=== PATIENT | female | born 1940 | race Caucasian/White ===

== ENCOUNTER → 2020-03-21 10:01 | Outpatient (BNVA) | payer MEDICARE, OTHER, SELFPAY | PROVIDERS: Family Provider Nurse Practitioner Family; PCP Nurse Practitioner Family; Visit Provider Nurse Practitioner Family | DX: I10 Essential (primary) hypertension (principal); R01.1 Cardiac murmur, unspecified | CPT/HCPCS: 80053; 80061; 84443; 85025 ==

== ENCOUNTER → 2020-03-30 15:56 | Outpatient (BNVA) | payer MEDICARE, OTHER, SELFPAY | PROVIDERS: Family Provider Nurse Practitioner Family; PCP Nurse Practitioner Family; Visit Provider Nurse Practitioner | DX: M25.562 Pain in left knee (principal) | CPT/HCPCS: 73562 ==

== ENCOUNTER → 2021-06-08 10:36 | Outpatient (BNVA) | payer MEDICARE, OTHER, SELFPAY | PROVIDERS: Family Provider Nurse Practitioner Family; PCP Nurse Practitioner Family; Visit Provider Nurse Practitioner Family | DX: U07.1 COVID-19 (principal) | CPT/HCPCS: 80053; 85025; 85379; 86140 ==

== ENCOUNTER → 2021-10-09 11:15 | Outpatient (BNVA) | payer MEDICARE, OTHER, SELFPAY | PROVIDERS: Family Provider Nurse Practitioner Family; PCP Nurse Practitioner Family; Visit Provider Nurse Practitioner Family | DX: I10 Essential (primary) hypertension (principal); M17.12 Unilateral primary osteoarthritis, left knee; K21.9 Gastro-esophageal reflux disease without esophagitis | CPT/HCPCS: 80053; 80061; 84443; 85025 ==

== ENCOUNTER 2022-02-26 16:36 | Observation (INO) | payer MEDICARE, SELFPAY ==
[2022-02-26] VITALS (11 sets, daily range): BP systolic 132–191; BP diastolic 63–100; PULSE 74–93; RESP 16–21; TEMP 36.6–38.7; O2SAT 92–97; BMI 30.8
--- NOTE | 2022-02-26 16:49 | XRR_ITS ---
PROCEDURE INFORMATION: Exam: XR Chest Exam date and time: 02/26/2022 5:01 PM Age: 81 years old Clinical indication: Chest wall pain; Additional info: Chest pain TECHNIQUE: Imaging protocol: XR of the chest. Views: 1 view. COMPARISON: No relevant prior studies available. FINDINGS: Lungs: Unremarkable. No consolidation. Pleural spaces: Unremarkable. No pleural effusion. No pneumothorax. Heart/Mediastinum: Unremarkable. No cardiomegaly. Bones/joints: Unremarkable. XR/XR chest 1V portable [id number] IMPRESSION: No acute findings.
[2022-02-26 16:57] LABS: Basophils % 0.1 %; Eosinophils % 0.1 %; Hematocrit 38.3 % (37.0-47.0); Hemoglobin 12.9 g/dL (11.5-15.3); Lymphocytes # 0.8 10^3/uL (0.8-4.8); Lymphocytes % 5.3 %; Mean Corpuscular HGB Conc 33.7 g/dL (30.0-36.0); Mean Corpuscular Hemoglobin 29.3 pg (28.0-34.0); Mean Platelet Volume 10.1 fL (7.4-10.4); Monocytes # 1.2 10^3/uL (0.2-0.9); Monocytes % 7.6 %; Neutrophils # 13.57 10^3/uL (1.8-7.7); Neutrophils % 86.6 %; Nucleated Red Blood Cells % 0 %; Platelet Count 270 10^3/cmm (130-400); Red Cell Distribution Width 13.2 % (12.1-15.1); White Blood Count 15.7 10^3/uL (4.0-10.0)
--- NOTE | 2022-02-26 16:58 | ED_ITS ---
HPI - General Adult General: Chief complaint: Chest Pain Stated complaint: CP Time Seen by Provider: 02/26/22 16:44 History of Present Illness: This is a [81]yo patient hx of HTN, diastolic heart dysfunction presenting to the ED w/ acute onset intermittent substernal chest pain x 2 hours. Patient tells me that this morning she woke up with significant diaphoresis around 8:00 with b/l arm pain. Since then, patient has been feeling fatigued throughout the day. Around 3 PM today, patient describes severe pressure-like sensation over her chest. Pain is not tearing in nature and does not radiate to the back. Endorse nausea but has no associated with vomiting or decreased PO intake. Denies any recent sympathomimetic drug use. Patient denies any cough. Denies palpitations, syncope symptoms. Pain not positional. Norecent immobility, surgery, unilateral leg swelling, or prior PE. Patient denies any orthopnea, paroxysmal nocturnal dyspnea, weight gain, or increased leg swellings. Onset: 2 hrs of chest pain Duration: ongoing for the last 2 hrs Location: home Severity: moderate Associated symptoms: Reports chest pain and diaphoresis; Deny dyspnea, nausea, rash, palpitations or vomiting Review of Systems Const: Reports: fatigue, diaphoresis and other; Denies: fever(s) or chills Eyes: Denies: change in vision ENMT: Denies: mouth pain Card: Reports: chest pain; Denies: palpitations Resp: Denies: dyspnea or non-productive cough GI: Denies: abdominal pain, nausea, vomiting or diarrhea : Denies: dysuria Musc: Denies: extremity pain Skin/Breast: Denies: rash or new lesions Neuro: Denies: weakness in extremities Psych: Reports: other (Normal mood) Keyshawn/Lymph: Denies: easy bruising PFSH ED PFSH: Medical History Cataract BILATERAL SURGERY Diastolic dysfunction GERD (gastroesophageal reflux disease) Hypertension Murmur Valvular insufficiency Surgical History H/O hysterectomy for benign disease History of appendectomy Family History Father Stroke Brother Cancer Other CAD (coronary artery disease) Social History Second hand smoke exposure: No Smoking risk assessment/counseling performed?: No Alcohol intake: never Desire information about alcohol rehabilitation?: No Counseling given: No Desire information about substance/drug rehabilitation?: No Counseling given: No Adopted: No Caregiver/support person: No Lives independently: Yes Household members: spouse Housing: House Marital status: Number of children: 3 service: No Current occupational status: retired Pets and animals: No History of recent travel: No Current gender identity: Female Physical Exam Const: COMMON NORMALS: alert HENMT: COMMON NORMALS: atraumatic HEAD & SCALP: atraumatic MOUTH: moist mucous membranes not abnormal Eye: COMMON NORMALS: EOMs intact bilaterally and conjunctivae normal CONJU NCTIVA: Yes conjunctivae normal Neck/C-Spine: COMMON NORMALS: full ROM and supple Resp: COMMON NORMALS: normal respiratory effort and clear to auscultation bilaterally AUSCULTATION: clear to auscultation bilaterally Cardio: COMMON NORMALS: regular rate RATE: regular rate OTHER: 2+ radial pulses b/l GI: COMMON NORMALS: Soft to palpation and non-tender PALPATION: Yes Soft to palpation Extremity: COMMON NORMALS: full ROM OTHER: +no LE swelling Neuro: SENSORIUM/ORIENTATION: Yes alert MOTOR EXAM: No Abnormal motor strength present and Other motor observations present (no focal motor deficits) Psych: COMMON NORMALS: speech normal SPEECH: Yes normal speech MOOD & AFFECT: Yes euthymic mood Course Vital Signs: Vital signs: Vital Signs Temperature 99.1 F 02/26/22 16:46 Pulse Rate 93 02/26/22 16:46 Respiratory Rate 20 H 02/26/22 16:46 Blood Pressure 191/100 02/26/22 16:46 Pulse Oximetry 94 02/26/22 16:46 MDM - General Adult Medical Decision Making [81]yo patient w/ hx of HTN, diastolic dysfunction presenting to the ED With acute substernal chest pain X 1 day Currently mild chest pain 4/10. Given History And Exam today I have moderate to high suspicion for ACS/UA/NSTEMI. Today, I have NO suspicion for pneumothorax, pneumonia, pulmonary embolus, tamponade, aortic dissection or other emergent problem as a cause for this presentation. ECG did not show any signs of acute STEMI. Workup: ECGx2, CXR, CBC, BMP, Troponinx2 Intervention: morphine/nitro PRN pain Findings: ECG: No overt evidence of STEMI, []hyperacute T waves, localizable STD or T wave inversions. No evidence of Brugada?s sign, delta wave, epsilon wave, significantly prolonged QTc, or malignant arrhythmia. No Q waves. Troponin: Negative x 1 Other Labs unremarkable for emergent problems. CXR: Without PTX, PNA, or widened mediastinum HEART score: 4 [6:30pm] On reassessment, the patient is currently chest pain improved with morphine. S/p aspirin 325mg. Pending repeat troponin. HDS, AAOx3, no signs of respiratory distress, without refractory chest pain, no signs of malignant dysrhythmia on environmental monitoring technician (VT/VF). Disposition: Inpatient admission. Lab Data : 02/26/22 16:50 02/26/22 16:50 Laboratory Results WBC 15.7 10^3/uL (4.0-10.0) H 02/26/22 16:50 RBC 4.40 10^6/uL (4.1-5.3) 02/26/22 16:50 Hgb 12.9 g/dL (11.5-15.3) 02/26/22 16:50 Hct 38.3 % (37.0-47.0) 02/26/22 16:50 MCV 87.0 fl (81-99) 02/26/22 16:50 MCH 29.3 pg (28.0-34.0) 02/26/22 16:50 MCHC 33.7 g/dL (30.0-36.0) 02/26/22 16:50 RDW 13.2 % (12.1-15.1) 02/26/22 16:50 Plt Count 270 10^3/cmm (130-400) 02/26/22 16:50 MPV 10.1 fL (7.4-10.4) 02/26/22 16:50 Neut % (Auto) 86.6 % 02/26/22 16:50 Lymph % (Auto) 5.3 % 02/26/22 16:50 [place] % (Auto) 7.6 % 02/26/22 16:50 Eos % (Auto) 0.1 % 02/26/22 16:50 Baso % (Auto) 0.1 % 02/26/22 16:50 Neut # (Auto) 13.57 10^3/uL (1.8-7.7) H 02/26/22 16:50 Lymph # (Auto) 0.8 10^3/uL (0.8-4.8) 02/26/22 16:50 [place] # (Auto) 1.2 10^3/uL (0.2-0.9) H 02/26/22 16:50 Eos # (Auto) 0.0 10^3/uL (0.0-0.8) 02/26/22 16:50 Baso # (Auto) 0.0 10^3/uL (0.0-0.1) 02/26/22 16:50 Nucleated RBC % (auto) 0 % 02/26/22 16:50 Nucleated RBCs # 0.0 /100WBC 02/26/22 16:50 Discharge Plan Discharge Condition: Stable Prescriptions: No Action calcium carbonate [Calcium 600] 600 mg calcium (1,500 mg) tablet 600 mg PO DAILY 0RF cyanocobalamin (vitamin B-12) 1,000 mcg capsule 5,000 mcg PO DAILY 0RF ascorbic acid (vitamin C) 500 mg tablet 500 mg PO DAILY 0RF cholecalciferol (vitamin D3) 125 mcg (5,000 unit) capsule 125 mcg PO DAILY 0RF Bystolic 5 mg tablet 5 mg PO DAILY Qty: 90 3RF omeprazole 10 mg capsule,delayed release(DR/EC) 40 mg PO DAILY Qty: 90 1RF celecoxib [Celebrex] 200 mg capsule 200 mg PO DAILY 30 Days Qty: 90 1RF Rx Instructions: Stop Ibuprofen Referrals: Allison Mauricio FNP-C [Primary Care Provider] - Coding Level of Care Code ED [employer] for Casey Lara
[2022-02-26] MEDS: morphine 4 mg/mL SDV 1 mL 2 MG IVP (17:14)
[2022-02-26 17:20] LABS: Troponin(5th) Baseline 7 ng/L (0-10)
[2022-02-26 17:21] LABS: Anion Gap 18.8 (5-19); Blood Urea Nitrogen 12 mg/dL (8-23); Calcium 9.7 mg/dL (8.5-10.5); Carbon Dioxide 21 mmol/L (22-29); Chloride 97 mmol/L (98-107); Glucose 116 mg/dL (65-115); Osmolality Calculated 277 mOsm/kg (285-295); Potassium 3.8 mmol/L (3.5-5.1); Sodium 133 mmol/L (136-145)
--- NOTE | 2022-02-26 19:38 | ECG_ITS ---
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 Measurements Intervals [place] Rate: 82 P: 18 NM: 176 QRS: 17 QRSD: 97 T: 34 QT: 336 QTc: 394 Interpretive Statements SINUS RHYTHM INCOMPLETE RIGHT BUNDLE BRANCH BLOCK [90+ ms QRS DURATION, TERMINAL R IN V1/V2, 40+ ms S IN I/aVL/V4/V5/V6] Compared to ECG 02/26/2022 16:46:46 No significant changes Electronically Signed On 02-27-2022 17:33:46 CDT by Orlin Spear M.D. [email or web address] [facility].MedWhat/store/[id number]
--- NOTE | 2022-02-26 19:53 | P.HP_ITS ---
Providers/Chief Complaint Admitting Physician: Ct Henry MD Primary Care Provider: SHUKRI Baum Chief Complaint: CP History of Present Illness Antonina Pfeiffer is a 81 year old female who presents today for chief complaint of not feeling well and chest discomfort. Patient stating that last night she was not feeling well she was extremely tired and slept around 830 which is very unusual for her. When she woke up next day she was drenched in sweat. Around 3 PM she started noticing some chest discomfort, when she took her blood pressure the systolic blood pressure was above 200 mmHg, she called her PCP who recommended to take aspirin high dose and go to the ER. Patient is stating that her chest pain persisted until she was chcf to the ER. Roughly chest pain persisted for about 30 to 40 minutes. She only took high-dose aspirin at home. She has not noticed fever, diarrhea, productive cough. She is endorsing tachypnea, shortness of breath on exertion, she is denying orthopnea and PND. Patient is stating that lately she has been breathing heavy. She consider h erself active for age, she has not experienced any chest pain on exertion. She follows up with Dr. Hummel for her murmur, she is due to see Dr. Prajapati now as Dr. Herr has moved. At the time of my evaluation blood pressure 140/79, she is afebrile doing well on room air Chest pain-free Very pleasant cooperative EKG revealed sinus rhythm no QTC of elongation, incomplete right bundle branch block I have requested D-dimer and echo Review of Systems 2 Const: Reports: chills and body aches Eyes: Denies: change in vision ENMT: Denies: throat pain Card: Reports: chest pain and dyspnea on exertion Resp: Reports: dyspnea GI: Denies: abdominal pain : Denies: flank pain Musc: Denies: neck pain Skin/Breast: Denies: rash Neuro: Denies: headache(s) Psych: Denies: anxiety Endo: Denies: polyuria Keyshawn/Lymph: Denies: easy bruising All/Imm: Denies: urticaria Medications/Allergies Home Medications Medication Instructions Recorded Confirmed Last Taken Type calcium carbonate 600 mg calcium 600 mg PO DAILY tab 10/29/19 02/26/22 02/26/22 History (1,500 mg) tablet (Calcium) cyanocobalamin (vitamin B-12) 5,000 mcg PO DAILY cap 10/25/20 02/26/22 02/26/22 History 1,000 mcg capsule ascorbic acid (vitamin C) 500 mg 500 mg PO DAILY 10/24/21 02/26/22 02/26/22 History tablet cholecalciferol (vitamin D3) 125 125 mcg PO DAILY 10/24/21 02/26/22 02/26/22 History mcg (5,000 unit) capsule nebivolol 5 mg tablet (Bystolic) 5 mg PO DAILY #90 tab 10/24/21 02/26/22 02/26/22 Rx omeprazole 10 mg capsule,delayed 40 mg PO DAILY #90 cap 01/24/22 02/26/22 02/26/22 Rx release celecoxib 200 mg capsule (Celebrex) 200 mg PO DAILY 30 Days #90 cap 02/08/22 02/26/22 02/26/22 Rx Allergies Allergy/AdvReac Type Severity Reaction Status Date / Time No Known Allergies Allergy Verified 02/26/22 17:24 PFSH Acute PFSH: Medical History Cataract BILATERAL SURGERY Diastolic dysfunction GERD (gastroesophageal reflux disease) Hypertension Murmur Valvular insufficiency Surgical History H/O hysterectomy for benign disease History of appendectomy Family History Father Stroke Brother Cancer Other CAD (coronary artery disease) Social History Second hand smoke exposure: No Smoking risk assessment/counseling performed?: No Alcohol intake: never Desire information about alcohol rehabilitation?: No Counseling given: No Desire information about substance/drug rehabilitation?: No Counseling given: No Adopted: No Caregiver/support person: No Lives independently: Yes Household members: spouse Housing: House Marital status: Number of children: 3 service: No Current occupational status: retired Pets and animals: No History of recent travel: No Current gender identity: Female Vitals/I&O/Wt Last Vital Signs Temp 99.1 F 02/26/22 16:46 Pulse 74 02/26/22 19:21 Resp 16 02/26/22 19:21 BP 140/79 02/26/22 19:21 Pulse Ox 94 02/26/22 19:21 Weight last 48 hrs Weight 71.668 kg Physical Exam Narrative: Very pleasant cooperative female Euvolemic Satting well on room air No respiratory distress S1, S2 Systolic murmur appreciated right second intercostal space No signs of heart failure EOMI, PERRLA Nonfocal neuro exam Doing well on room air Euvolemic No active chest pain Data : 02/26/22 16:50 02/26/22 16:50 A&P Assessment and plan (1) Unstable angina: Status: Acute Plan Unstable angina No active chest pain First troponin 7 EKG without ischemic or infarct changes Check D-dimer, echo Check TSH Check BMP Considering moderate risk factor for coronary artery disease we will do stress test in the morning Patient is endorsing shortness of breath on exertion, further decision will be made after her echo and cardiac stress test Would recommend against celecoxib Does not have typical aortic dissection signs or symptoms Rule out PE D-dimer No active signs of pneumonia Hypertensive urgency: Current blood pressure 140/70 mmHg, Continue lisinopril 5 mg along morphine, hold metoprolol for stress test tomorrow morning Follow-up for TSH GERD: Continue Protonix Full code N.p.o. after midnight DVT prophylaxis currently on therapeutic Lovenox Attestations Medical Necessity Statement*: Anticipating discharge within 48 hours will need work-up for unstable angina Time Spent in Patient Care: 40mins Coding Level of Care Code Acute [employer] Team Member for Casey Lara Diagnoses Unstable angina I20.0
--- NOTE | 2022-02-26 20:04 | USCV_ITS ---
Antonina Pfeiffer Age: 81 Gender: F : 1940 Exam Date: 02/26/2022 21:25 Ordering Phys: Sabino Harmon MD Technologist: IMAN Exam Location: [facility] Indication: Angina BP: 163 / 103 HR: 73 Rhythm: Sinus Technical Quality: Adequate MEASUREMENTS (Male / Female) Normal Values 2D ECHO LV Diastolic Diameter PLAX 4.1 cm 4.2 - 5.9 / 3.9 - 5.3 cm LV Systolic Diameter PLAX 1.4 cm IVS Diastolic Thickness 1.1 cm 0.6 - 1.0 / 0.6 - 0.9 cm IVS Systolic Thickness 1.6 cm LVPW Diastolic Thickness 1.3 cm 0.6 - 1.0 / 0.6 - 0.9 cm LVPW Systolic Thickness 2.7 cm LVOT Diameter 1.9 cm LV Ejection Fraction 2D Teich 93.5 % LV Ejection Fraction MOD 2C 72.1 % LV Ejection Fraction 2C AL 70.4 % LA Diameter 4.1 cm LA Width 5.3 cm LA Height 6.2 cm RA Width 3.6 cm RA Height 3.8 cm Aorta at Sinotubular Diameter 2.2 cm IVC Diameter 1.6 cm M-MODE Aortic Annulus Diameter 2.1 cm LA Ao Ratio MM 2.4 MV E Point Septal Separation 0.5 cm DOPPLER AV Peak Velocity 217.0 cm/s LVOT Peak Velocity 129.0 cm/s AV Area Cont Eq vti 1.9 cm squared AV Area Cont Eq pk 1.7 cm squared MV Peak Velocity 143.0 cm/s MV Area PHT 3.0 cm squared Mitral E to A Ratio 0.7 MV E' Velocity 93.0 cm/s TR Peak Velocity 139.6 cm/s TR Peak Gradient 7.8 mmHg TR Mean Velocity 89.5 cm/s TR Mean Gradient 4.1 mmHg TR Velocity Time Integral 23.4 cm Right Atrial Pressure 10.0 mmHg Pulmonary Artery Systolic Pressu 17.8 mmHg PV Peak Velocity 137.0 cm/s RV Acceleration Time 0.1 s RV Ejection Time 0.3 s RV AcT/ET 0.3 FINDINGS Left Ventricle Normal left ventricular size. LV systolic function is normal with EF of 60-65%. No regional wall motion abnormalities. Grade 1 diastolic dysfunction Right Ventricle The right ventricle is normal in size and function. Right Atrium The right atrium is normal in size. Left Atrium The left atrium is dilated. Mitral Valve Structurally normal mitral valve without significant stenosis or prolapse. There is mild mitral regurgitation. Aortic Valve Structurally normal aortic valve without significant sclerosis or stenosis. There is no aortic regurgitation. Tricuspid Valve Structurally normal tricuspid valve without significant stenosis or regurgitation. Insufficient TR jet to calculate RVSP Pulmonic Valve Structurally normal pulmonic valve without significant stenosis. There is no pulmonic regurgitation. Pericardium Normal pericardium without effusion. Aorta Normal ascending aorta dimension. CONCLUSIONS LV systolic function is normal with EF of 60-65% Grade 1 diastolic dysfunction Mild mitral regurgitation Compared to prior echocardiogram to 12/24/2018, no significant changes are seen Orlin Spear MD (Electronically Signed) Final Date: 27 Feb 2022 11:00 S
--- NOTE | 2022-02-26 20:08 | ECG_ITS ---
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 Interpretive Statements NAME OF STUDY: LEXISCAN SESTAMIBI STRESS TEST INDICATION: Angina, PROCEDURE: At the baseline, the EKG revealed normal sinus rhythm with a poor R wave progression. Possible old inferior wall NH. The baseline blood pressure was 123/65 mm Hg with a heart rate of 90 beats/min. Lexiscan was infused over a period of 20 seconds. A total of 0.4 milligrams of Lexiscan was infused. The stress phase was continued for a total of 5 minutes. Heart rate at the end of the stress phase was uneventful with a blood pressure 128/66. The EKG at the peak infusion revealed no significant changes. Sestamibi was injected 20 seconds after the Lexiscan infusion. Blood pressure at the end of the recovery phase was 131/64 with a heart rate of 104 per minute. CONCLUSION: no significant changes Angina, 1. No significant EKG changes with the LexiScan infusion 2. No LexiScan induced chest pain or cardiac arrhythmia 3. Normal blood pressure and heart rate response 4. Sestamibi/sestamibi perfusion scan pending; see separate report. Electronically Signed On 03-01-2022 13:25:13 CDT by Dina Amos M.D. [email or web address] Pharmaceuticals[facility].Zollo/store/[id number]
[2022-02-26 21:09] LABS: D Dimer 1.16 ug/mIFEU (0-0.59)
[2022-02-26 21:14] LABS: Troponin 5 2HR 7.78 ng/L (0-10)
[2022-02-26 21:21] LABS: Troponin 5 2HR Delta 0.78 ABS# (0-10)
[2022-02-26 21:22] LABS: NT Pro B Type Natriuretic Pept 734 pg/mL (0-450); Procalcitonin 0.51 ng/mL (0-0.5); Thyroid Stimulating Hormone 1.94 uIU/mL (0.27-4.20)
[2022-02-26 21:33] LABS: Chol HDL Ratio 3.21 mg/dL (0.0-4.40); Cholesterol 170 mg/dL (0-200); HDL Cholesterol 53 mg/dL (60-100); LDL Cholesterol Calculated 104 mg/dL (50-129); LDL HDL Ratio 1.96 RATIO (0.00-3.22); Triglycerides 64 mg/dL (0-150)
[2022-02-26 21:45] LABS: Estmated Average Glucose 120; Hemoglobin A1C 5.8 % (4.0-6.0)
[2022-02-26] MEDS: enoxaparin 80 mg/0.8 mL Syringe 70 MG SUBCUT (22:00)
[2022-02-26] MEDS: atorvastatin 40 mg Tablet 80 MG PO (22:00)
[2022-02-26] MEDS: potassium chloride ER 20 mEq Tablet PO (22:00)
--- NOTE | 2022-02-26 22:38 | ECG_ITS ---
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 Measurements Intervals [place] Rate: 77 P: 34 GA: 163 QRS: 20 QRSD: 102 T: 39 QT: 383 QTc: 436 Interpretive Statements SINUS RHYTHM INCOMPLETE RIGHT BUNDLE BRANCH BLOCK [90+ ms QRS DURATION, TERMINAL R IN V1/V2, 40+ ms S IN I/aVL/V4/V5/V6] PROBABLE INFERIOR MYOCARDIAL INFARCTION , PROBABLY OLD [35 ms Q WAVE IN II/aVF] Compared to ECG 02/26/2022 22:11:54 Myocardial infarct finding now present Electronically Signed On 02-27-2022 17:32:12 CDT by Orlin Spear M.D. [email or web address].[employer]store/[id number]
[2022-02-26] MEDS: lisinopril 10 mg Tablet PO (22:44)
[2022-02-26] MEDS: acetaminophen 325 mg Tablet 650 MG PO (22:44)
--- NOTE | 2022-02-26 22:46 | PC.NURSE ---
2159- secure messaged Dr. Sanchez for clarification on Lisinopril order. Instructed to give 10mg of Lisinopril only by Dr. Sanchez. See MAR
--- NOTE | 2022-02-26 22:49 | ECG_ITS ---
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 Measurements Intervals [place] Rate: 92 P: 39 IA: 168 QRS: 32 QRSD: 101 T: 52 QT: 335 QTc: 415 Interpretive Statements SINUS RHYTHM INCOMPLETE RIGHT BUNDLE BRANCH BLOCK [90+ ms QRS DURATION, TERMINAL R IN V1/V2, 40+ ms S IN I/aVL/V4/V5/V6] No previous ECG available for comparison Electronically Signed On 02-26-2022 21:51:07 CDT by Dina Amos M.D. [email or web address].[facility].[employer]/store/[id number]
[2022-02-26 22:50] LABS: Add Urine Microscopic? NO; Charge for UA Resulting for Rev
[2022-02-26 22:52] LABS: Bilirubin Urine Neg (Negative); Blood Urine Neg (Negative); Glucose Urine UA Norm (Normal); Ketones Urine 2+ (Negative); Leukocyte Esterase Urine Negative (Negative); Nitrate Urine Negative (Negative); Protein Urine Neg (Negative); Urine Appearance Clear (CLEAR); Urine Color Yellow (Yellow); Urobilinogen Urine 1 mg/dL (Negative); pH Urine 7 (5-7)
[2022-02-27] VITALS (8 sets, daily range): BP systolic 101–134; BP diastolic 56–84; PULSE 77–105; RESP 16–23; TEMP 37.6; O2SAT 93–94
--- NOTE | 2022-02-27 01:38 | ECG_ITS ---
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 Measurements Intervals [place] Rate: 83 P: 29 MO: 156 QRS: 50 QRSD: 98 T: 42 QT: 336 QTc: 395 Interpretive Statements SINUS RHYTHM INCOMPLETE RIGHT BUNDLE BRANCH BLOCK [90+ ms QRS DURATION, TERMINAL R IN V1/V2, 40+ ms S IN I/aVL/V4/V5/V6] Compared to ECG 02/27/2022 01:23:33 Myocardial infarct finding no longer present Electronically Signed On 02-27-2022 17:31:17 CDT by Orlin Spear M.D. [email or web address] mississippi state hospitalM[facility].[employer]/store/[id number]
[2022-02-27 02:42] LABS: Basophils % 0.2 %; Eosinophils % 0.1 %; Hematocrit 37.2 % (37.0-47.0); Hemoglobin 12.1 g/dL (11.5-15.3); Lymphocytes % 7.7 %; Mean Corpuscular HGB Conc 32.5 g/dL (30.0-36.0); Mean Corpuscular Hemoglobin 29.2 pg (28.0-34.0); Mean Corpuscular Volume 89.9 fl (81-99); Mean Platelet Volume 10.5 fL (7.4-10.4); Monocytes % 7.7 %; Neutrophils # 11.25 10^3/uL (1.8-7.7); Neutrophils % 83.8 %; Nucleated Red Blood Cells % 0 %; Platelet Count 256 10^3/cmm (130-400); Red Blood Count 4.14 10^6/uL (4.1-5.3); Red Cell Distribution Width 13.2 % (12.1-15.1); White Blood Count 13.4 10^3/uL (4.0-10.0)
[2022-02-27 03:00] LABS: Alanine Aminotransferase 17 U/L (0-33); Albumin Level 3.6 g/dL (3.5-5.2); Alkaline Phosphatase 70 IU/L (35-105); Anion Gap 16.6 (5-19); Aspartate Amino Transferase 18 U/L (0-32); Blood Urea Nitrogen 12 mg/dL (8-23); Calcium 9.3 mg/dL (8.5-10.5); Carbon Dioxide 21 mmol/L (22-29); Chloride 99 mmol/L (98-107); Glucose 111 mg/dL (65-115); Osmolality Calculated 276 mOsm/kg (285-295); Potassium 3.6 mmol/L (3.5-5.1); Sodium 133 mmol/L (136-145); Total Bilirubin 0.8 mg/dL (0.15-1.2); Total Protein 6.6 g/dL (6.6-8.7)
[2022-02-27 03:01] LABS: Troponin 5 6HR 9.58 ng/L (0-10)
[2022-02-27 03:11] LABS: Troponin 5 6HR Delta 2.58 ng/L (0-12)
--- NOTE | 2022-02-27 06:45 | NMCV_ITS ---
NM zoila perf SPECT r/s* [id number] Antonina Pfeiffer Age: 81 Gender: F : 1940 Exam Date: 02/26/2022 20:08 Ordering Phys: Sabino Harmon MD Technologist: NAOMY Fountain Exam Location: [facility] Indications: CHEST PAIN STRESS TEST Please see separate stress test report in [facility] for full findings IMAGE PROTOCOL Rest/Stress 1 Lexiscan Day Radiopharmaceutical Dose (mCi) Administration Site Administered by Rest: Tc-99m 10.8 IV Miley López, ARCHITECTURE DRAFTER Sestamibi Stress:Tc-99m 32.5 IV Miley Holtrager, ARCHITECTURE DRAFTER Sestamibi Rest: 27-Feb-2022 60 Discovery 630 Stress: 27-Feb-2022 30 Discovery 630 0.4mg Lexiscan. Images obtained in supine and prone position. SPECT RESULTS Technical Quality: Excellent Raw Data Analysis: Normal Image Corrections: No attenuation or motion correction applied Summed Stress Score: 2 Summed Rest Score: 2 Summed Difference Score: 2 PERFUSION FINDINGS A small area of moderately decreased tracer uptake was noted in the mid inferolateral region with complete reversibility, in the supine imaging. However with the prone imaging, there was fairly uniform myocardial tracer uptake. FUNCTIONAL RESULTS (calculated via Gated SPECT) Stress Image LV EF (%): 88 Stress EDV (mL):51 TID: 0.84 Stress ESV (mL):6 FUNCTIONAL FINDINGS: Segmental wall motion analysis revealing no gross wall motion abnormality IMPRESSIONS 1. Myocardial perfusion imaging revealing a small area of reversible defect in the inferolateral wall region, suggestive of ischemia in the distribution of the left circumflex artery. However in view of the inconsistency with the prone imaging, the reliability is questionable. Clinical correlation is recommended. 2. Normal LV ejection fraction of 88%. 3. LV wall motion analysis revealing no gross wall motion abnormalities. 4. Normal LV volume No similar previous studies are available for comparison Dr Dina Amos MD [facility] (Electronically Signed) Final Date: 27 Feb 2022 09:24 S
--- NOTE | 2022-02-27 07:56 | PC.NURSE ---
to cardiac stress test via w/c at 0745
[2022-02-27] MEDS: ondansetron 2 mg/ML SDV 2 mL 4 MG IVP (08:27)
[2022-02-27] MEDS: regadenoson 0.4 Mg/5 ml Syringe IVP (08:27)
--- NOTE | 2022-02-27 09:37 | PC.NURSE ---
return from cardiac stress test at 0915.pt tolerated procedure well
[2022-02-27] MEDS: enoxaparin 80 mg/0.8 mL Syringe 70 MG SUBCUT (09:40)
[2022-02-27] MEDS: lisinopril 10 mg Tablet PO (09:41)
[2022-02-27] MEDS: atorvastatin 40 mg Tablet 80 MG PO (09:48)
[2022-02-27] MEDS: aspirin 81 mg EC Tablet PO (09:48)
[2022-02-27] MEDS: amlodipine 5 mg Tablet PO (09:49)
[2022-02-27] MEDS: pantoprazole DR 40 mg Tablet PO (09:49)
[2022-02-27 10:41] LABS: Glucose Urine UA Norm (Normal); Protein Urine 1+ (Negative); Specific Gravity, Urine 1.015 (1.005-1.030); Urine Appearance Hazy (CLEAR); Urine Color Yellow (Yellow); pH Urine 5 (5-7)
[2022-02-27 10:42] LABS: Bilirubin Urine 1+ (Negative); Blood Urine 2+ (Negative); Ketones Urine 3+ (Negative); Nitrate Urine Negative (Negative)
[2022-02-27 10:43] LABS: Add Urine Microscopic? YES; Leukocyte Esterase Urine 2+ (Negative); RBC Urine 0-4 /hpf (0-2); Urobilinogen Urine 1 mg/dL (Negative)
[2022-02-27 10:44] LABS: Add Urine Culture? Yes; Bacteria Urine 1+ /hpf; Renal Epithelial Cells Urine 0 /hpf
[2022-02-27 10:46] LABS: Influenza A by IFA Negative (Negative); Influenza B by IFA Negative (Negative)
[2022-02-27] MEDS: cefTRIAXone 1,000 MG in sodium chloride 0.9% (plus) 50 ML 100 MG IV (11:25)
--- NOTE | 2022-02-27 16:04 | P.PN_ITS ---
Subjective Subjective: Seen later this afternoon after stress test results are back. They do show small reversible defect in the inferior wall area and left circumflex artery region. However the defect is questionable as proper images were not obtained due to patient's positioning. I discussed this with the patient and her and they appeared quite worried. Discussed with him regarding consulting cardiology. Patient has not had any chest pain since being in the hospital. Vitals/I&O/Wt Last Vital Signs Temp 99.7 F H 02/27/22 03:40 Pulse 80 02/27/22 14:00 Resp 16 02/27/22 12:00 BP 124/58 02/27/22 12:00 Pulse Ox 94 02/27/22 12:00 02/27/22 02/27/22 02/27/22 06:59 14:59 22:59 Intake Total 0 / 50 650 / 650 Output Total 500 / 500 Balance -500 / -450 650 / 650 Weight last 48 hrs Weight 71.668 kg Physical Exam Narrative: General: Alert oriented x3, patient seen laying in bed appearing worried. at bedside. HEENT: Normocephalic, atraumatic, EOMI, breathing comfortably. Cardio: Regular rate rhythm, normal S1-S2 Respiratory: Good bilateral air entry, no wheezes no rhonchi appreciated GI: Abdomen soft, nontender, nondistended, bowel sounds + Extremities: no edema, no cyanosis Data : 02/27/22 02:03 02/27/22 02:03 Micro: Microbiology 02/26/22 20:30 Blood Culture - Preliminary Blood SPECIMEN COLLECTED 02/26/22 20:28 Blood Culture - Preliminary Blood SPECIMEN COLLECTED A&P Assessment and plan (1) Unstable angina: Status: Acute (2) Valvular insufficiency: Status: Acute (3) Osteoarthritis of left knee: Status: Acute Qualifiers: Osteoarthritis type: primary Qualified Code(s): M17.12 - Unilateral francine alisa osteoarthritis, left knee (4) GERD (gastroesophageal reflux disease): Status: Chronic Qualifiers: Esophagitis presence: without esophagitis Qualified Code(s): K21.9 - Gastro-esophageal reflux disease without esophagitis (5) Hypertension: Status: Chronic Qualifiers: Hypertension type: essential hypertension Qualified Code(s): I10 - Essential (primary) hypertension (6) Diastolic dysfunction: Status: Acute Plan #Unstable angina #History of diastolic dysfunction #Hypertensive urgency?blood pressure systolic at home 200 #GERD #UTI, Patient came in with typical chest pain and also shortness of breath on exertion It relieved with nitro and morphine. EKG without ischemic changes. Echo completed. No wall motion abnormality noted. Grade 1 diastolic function present Stress test showed a small reversible defect in left circumflex artery region, correlate clinically BMP 734. Patient is euvolemic. Patient was started on on aspirin, atorvastatin, lisinopril at admission Held off on beta-elena and Plavix at admission. Continue rest of home medications. Blood pressure controlled. Patient is on therapeutic Lovenox. Consult cardiology. Blood cultures negative to date. Patient was febrile on admission. We will continue ceftriaxone for UTI. Full code ? at bedside updated. Attestations Medical Necessity Statement*: Will need to see cardiology for further recommendations. Positive stress test. Coding Level of Care Code Acute Lever Operator for [facility] Fwd Diagnoses Unstable angina I20.0 Valvular insufficiency I38 Osteoarthritis of left knee M17.12 Osteoarthritis type: primary GERD (gastroesophageal reflux disease) K21.9 Esophagitis presence: without esophagitis Hypertension I10 Hypertension type: essential hypertension Diastolic dysfunction I51.89
--- NOTE | 2022-02-27 16:06 | P.CONIM_ITS ---
Providers/Reason For Consult Consulting Physician/Specialty*: Dr. Prajapati, cardiology Reason for Consult*: Chest pain, abnormal stress test Attending Physician: Ct Henry MD Primary Care Provider: SHUKRI Baum History of Present Illness History of Present Illness Antonina Pfeiffer is a 81 year old female with PMHx of hypertension, tricuspid valve regurgitation and diastolic dysfunction She presented with chief complaint of not feeling well and chest discomfort.? Patient was extremely tired night before and when she woke up next day she was drenched in sweat. Around 3 PM, she checked her BP and noted it was >200 mm Hg and some chest tightness. She called her PCP and was sent to the ER.? Patient's chest pain persisted after taking ASA until she was custodial to the ER and was completely relieved by morphine.? Roughly chest pain persisted for about an hr.? She has not noticed dysuria, fever, diarrhea, productive cough.? She consider herself active for age, she has not experienced any chest pain on exertion.?Troponins negative, EKG with sinus rhythm and incomplete RBBB. She has been chest pain-free since arrival to the ER. She underwent stress test this morning. Her Dennis (my pt) is at bedside. She remains chest pain-free at the time of evaluation. Review of Systems General: Reports: 10 or more systems reviewed and unremarkable except in HPI and below Const: Reports: chills and body aches Eyes: Denies: change in vision ENMT: Denies: throat pain Card: Reports: chest pain and dyspnea on exertion Resp: Reports: dyspnea GI: Denies: abdominal pain : Denies: flank pain Musc: Denies: neck pain Skin/Breast: Denies: rash Neuro: Denies: headache(s) Psych: Denies: anxiety Endo: Denies: polyuria Keyshawn/Lymph: Denies: easy bruising All/Imm: Denies: urticaria Medications/Allergies Home Medications Medication Instructions Recorded Confirmed Last Taken Type calcium carbonate 600 mg calcium 600 mg PO DAILY tab 10/29/19 02/26/22 02/26/22 History (1,500 mg) tablet (Calcium) cyanocobalamin (vitamin B-12) 5,000 mcg PO DAILY cap 10/25/20 02/26/22 02/26/22 History 1,000 mcg capsule ascorbic acid (vitamin C) 500 mg 500 mg PO DAILY 10/24/21 02/26/22 02/26/22 History tablet cholecalciferol (vitamin D3) 125 125 mcg PO DAILY 10/24/21 02/26/22 02/26/22 History mcg (5,000 unit) capsule nebivolol 5 mg tablet (Bystolic) 5 mg PO DAILY #90 tab 10/24/21 02/26/22 02/26/22 Rx omeprazole 10 mg capsule,delayed 40 mg PO DAILY #90 cap 01/24/22 02/26/22 02/26/22 Rx release aspirin 81 mg tablet,delayed 81 mg PO DAILY 30 Days #30 tab 02/27/22 Unknown Rx release atorvastatin 40 mg tablet 80 mg PO DAILY 30 Days #30 tab 02/27/22 Unknown Rx cefdinir 300 mg capsule 300 mg PO BID 7 Days #14 cap 02/27/22 Unknown Rx lisinopril 10 mg tablet 10 mg PO DAILY 30 Days #30 tab 02/27/22 Unknown Rx nitroglycerin 0.4 mg sublingual 0.4 mg SUBLINGUAL Q5M PRN 30 Days 02/27/22 Unknown Rx tablet #10 tab Allergies Allergy/AdvReac Type Severity Reaction Status Date / Time No Known Allergies Allergy Verified 02/26/22 17:24 Current Medications Generic Name Dose Route Start Last Admin Trade Name Johnnyq PRN Reason Stop Dose Admin Acetaminophen 650 mg 02/26/22 22:36 02/26/22 22:44 Acetaminophen 325 Mg Tablet PO 650 mg Q6H PRN Administration MILD PAIN Amlodipine Besylate 5 mg 02/27/22 09:00 02/27/22 09:49 Amlodipine 5 Mg Tablet PO 5 mg DAILY KIARA Administration Aspirin 81 mg 02/27/22 09:00 02/27/22 09:48 Aspirin 81 Mg Ec Tablet PO 81 mg DAILY KIARA Administration Atorvastatin Calcium 80 mg 02/26/22 19:38 02/27/22 09:48 Atorvastatin 40 Mg Tablet PO 80 mg DAILY KIARA Administration Enoxaparin Sodium 70 mg 02/27/22 10:00 02/27/22 09:40 Enoxaparin 80 Mg/0.8 Ml Syringe SUBCUT 70 mg Q12H KIARA Administration Ceftriaxone Sodium 1,000 mg/ 50 mls @ 100 mls/hr 02/27/22 11:00 02/27/22 11:55 Sodium Chloride IV Infused Q24H KIARA Infusion Protocol Lisinopril 10 mg 02/26/22 20:10 02/27/22 09:41 Lisinopril 10 Mg Tablet PO 10 mg DAILY KIARA Administration Ondansetron HCl 4 mg 02/27/22 06:51 02/27/22 08:27 Ondansetron 2 Mg/Ml Sdv 2 Ml IVP 4 mg Q2M PRN Administration NAUSEA Pantoprazole Sodium 40 mg 02/27/22 09:00 02/27/22 09:[address] 40 Mg Tablet PO 40 mg DAILY KIARA Administration PFSH Acute PFSH: Medical History Cataract BILATERAL SURGERY Diastolic dysfunction GERD (gastroesophageal reflux disease) Hypertension Murmur Valvular insufficiency Surgical History H/O hysterectomy for benign disease History of appendectomy Family History Father Stroke Brother Cancer Other CAD (coronary artery disease) Social History Second hand smoke exposure: No Smoking risk assessment/counseling performed?: No Alcohol intake: never Desire information about alcohol rehabilitation?: No Counseling given: No Desire information about substance/drug rehabilitation?: No Counseling given: No Adopted: No Caregiver/support person: No Lives independently: Yes Household members: spouse Housing: House Marital status: Number of children: 3 service: No Current occupational status: retired Pets and animals: No History of recent travel: No Current gender identity: Female Vitals/I&O/Wt Last Vital Signs Temp 99.7 F H 02/27/22 03:40 Pulse 80 02/27/22 14:00 Resp 16 02/27/22 12:00 BP 124/58 02/27/22 12:00 Pulse Ox 94 02/27/22 12:00 02/27/22 02/27/22 02/27/22 06:59 14:59 22:59 Intake Total 0 / 50 650 / 650 Output Total 500 / 500 Balance -500 / -450 650 / 650 Weight last 48 hrs Weight 158 lb Physical Exam Narrative: GENERAL: Averagely built and averagely nourished in no acute distress HEENT: Extraocular movement intact. Pupils equal round reactive to light. No pallor or icterus. NECK: central trachea, [] JVD, [] abdominojugular reflex. No carotid bruit. CARDIOVASCULAR SYSTEM: S1-S2 regular. No S3 or S4 present. [No murmur rubs or gallops.] RESPIRATORY SYSTEM: Chest clear to auscultation. No wheezes rhonchi or rubs heard. [] No use of accessory muscles. ABDOMEN: Soft, nontender and nondistended. Normal bowel sounds present. No hepatosplenomegaly appreciated. [] EXTREMITIES: No cyanosis or clubbing. [No edema]. No signs of chronic venous insufficiency. MATHEMATICIAN RESEARCH: Patient is alert oriented ?3. No focal neurological deficits. Cranial nerves intact. [] SKIN: Normal turgor and temperature. No breakdown, rash or nail changes noted. [] PSYCH: Normal insight and judgment. No suicidal or homicidal ideations. Data : 02/27/22 02:03 02/27/22 02:03 Micro: Microbiology 02/26/22 20:30 Blood Culture - Preliminary Blood SPECIMEN COLLECTED 02/26/22 20:28 Blood Culture - Preliminary Blood SPECIMEN COLLECTED Other data: Lexiscan MPI (02/27/22) IMPRESSIONS ?1.? Myocardial perfusion imaging revealing a small area of reversible defect in ?the inferolateral wall? region, suggestive of ischemia in the distribution of ?the left circumflex artery.? However in view of the inconsistency with the ?prone imaging, the reliability is questionable.? Clinical correlation is ?recommended. ?2.? Normal LV ejection fraction of 88%. ?3.? LV wall motion analysis revealing no gross wall motion abnormalities. ?4.? Normal LV volume ?No similar previous studies are available for comparison TTE (02/27/22) CONCLUSIONS ?LV systolic function is normal with EF of 60-65% ?Grade 1 diastolic dysfunction ?Mild mitral regurgitation ?Compared to prior echocardiogram to 12/24/2018, no significant ?changes are seen. A&P Assessment and plan (1) Chest pain: resolved -advised to call with any worsening symptoms Status: Acute (2) Abnormal nuclear stress test: Mildly abnormal stress test with small area of reversible defect in the inferolateral wall?not seen on prone imaging. SDS=2. -Findings of the study were discussed with patient and her . -Attenuation artifact cannot be completely ruled out in this situation. -Decision was made to proceed with medical management. -Continue aspirin, statin and beta block. NTG SL on discharge -f/u in 1-2 weeks Status: Acute (3) Hypertension: BP better controlled now. Status: Chronic Qualifiers: Hypertension type: essential hypertension Qualified Code(s): I10 - Essential (primary) hypertension (4) GERD (gastroesophageal reflux disease): Status: Chronic Qualifiers: Esophagitis presence: without esophagitis Qualified Code(s): K21.9 - Gastro-esophageal reflux disease without esophagitis (5) Osteoarthritis of left knee: Status: Acute Qualifiers: Osteoarthritis type: primary Qualified Code(s): M17.12 - Unilateral primary osteoarthritis, left knee Plan UTI Thank you for allowing me to participate in patient's care. Please feel free to call with questions or concerns. Consult Attestations Time Spent in Patient Care: 16 - 35 minutes Coding Level of Care Code Acute [employer] Treatment Operator for [facility] Fwd Diagnoses Chest pain R07.9 Abnormal nuclear stress test R94.39 Hypertension I10 Hypertension type: essential hypertension GERD (gastroesophageal reflux disease) K21.9 Esophagitis presence: without esophagitis Osteoarthritis of left knee M17.12 Osteoarthritis type: primary
--- NOTE | 2022-02-27 16:32 | PM.DCS ---
Discharge Providers Date of Admission: 02/26/22 19:37 Date of Discharge: February 27, 2022 Attending Provider at Admission: Ct Henry MD Attending Provider at Discharge: Ct Henry MD Primary Care Provider: SHUKRI Baum Diagnoses at Discharge Discharge Diagnosis (1) Unstable angina: Status: Acute (2) Valvular insufficiency: Status: Acute (3) Osteoarthritis of left knee: Status: Acute Qualifiers: Osteoarthritis type: primary Qualified Code(s): M17.12 - Unilateral primary osteoarthritis, left knee (4) GERD (gastroesophageal reflux disease): Status: Chronic Qualifiers: Esophagitis presence: without esophagitis Qualified Code(s): K21.9 - Gastro-esophageal reflux disease without esophagitis (5) Hypertension: Status: Chronic Qualifiers: Hypertension type: essential hypertension Qualified Code(s): I10 - Essential (primary) hypertension (6) Diastolic dysfunction: Status: Acute Reason for Visit Reason for Visit: CP Brief History: Antonina Pfeiffer is a 81 year old female who presents today for chief complaint of not feeling well and chest discomfort.? Patient stating that last night she was not feeling well she was extremely tired and slept around 830 which is very unusual for her.? When she woke up next day she was drenched in sweat.? Around 3 PM she started noticing some chest discomfort, when she took her blood pressure the systolic blood pressure was above 200 mmHg, she called her PCP who recommended to take aspirin high dose and go to the ER.? Patient is stating that her chest pain persisted until she was half-way to the ER.? Roughly chest pain persisted for about 30 to 40 minutes.? She only took high-dose aspirin at home.? She has not noticed fever, diarrhea, productive cough.? She is endorsing tachypnea, shortness of breath on exertion, she is denying orthopnea and PND.? Patient is stating that lately she has been breathing heavy.? She consider herself active for age, she has not experienced any chest pain on exertion.? She follows up with Dr. Hummel for her murmur, she is due to see Dr. Prajapati now as Dr. Herr has moved. At the time of my evaluation blood pressure 140/79, she is afebrile doing well on room air Chest pain-free Very pleasant cooperative EKG revealed sinus rhythm no QTC of elongation, incomplete right bundle branch block I have requested D-dimer and echo Hospital Course Hospital Course Came in with typical chest pain or shortness of breath on exertion. Relieved with nitro and morphine. EKG without ischemic changes. Echo completed no wall motion abnormality noted grade 1 diastolic dysfunction present. Stress test showed small reversible defect in left circumflex artery region. BNP 734. Patient euvolemic. Patient was started on aspirin atorvastatin lisinopril. Continue nebivolol. Patient also seen by cardiology. No intervention to be done at this time. Patient will be discharged home to follow-up with cardiology within a week. Blood cultures negative to date. Urinalysis was abnormal. She was started on ceftriaxone for UTI and discharged on cefdinir. Urine culture sent and pending. Patient feeling better. Physical Exam Narrative: See progress note from today. Discharge Data Studies Completed and Pending Completed Studies During Hospitalization Category Date Time Status Sestamibi Stress Test Request Routine Exams 02/26/22 20:08 Draft XR chest 1V portable [id number] Stat Exams 02/26/22 16:49 Completed NM zoila perf SPECT r/s* [id number] Routine Nuc Med 02/27/22 06:45 Completed CV. echo complete* [id number] Routine Ultrasound 02/26/22 20:04 Completed Pending at discharge Category Date Time Status Blood Culture Routine Lab 02/26/22 20:30 Results Sputum Culture and Gram Stain Stat Lab 02/27/22 08:00 Uncollected Urine Culture Stat Lab 02/27/22 09:45 Received Radiology Impressions Chest X-Ray 02/26/22 16:49 IMPRESSION: No acute findings. Laboratory Results WBC 13.4 10^3/uL (4.0-10.0) H 02/27/22 02:03 RBC 4.14 10^6/uL (4.1-5.3) 02/27/22 02:03 Hgb 12.1 g/dL (11.5-15.3) 02/27/22 02:03 Hct 37.2 % (37.0-47.0) 02/27/22 02:03 MCV 89.9 fl (81-99) 02/27/22 02:03 MCH 29.2 pg (28.0-34.0) 02/27/22 02:03 MCHC 32.5 g/dL (30.0-36.0) 02/27/22 02:03 RDW 13.2 % (12.1-15.1) 02/27/22 02:03 Plt Count 256 10^3/cmm (130-400) 02/27/22 02:03 MPV 10.5 fL (7.4-10.4) H 02/27/22 02:03 Neut % (Auto) 83.8 % 02/27/22 02:03 Lymph % (Auto) 7.7 % 02/27/22 02:03 [place] % (Auto) 7.7 % 02/27/22 02:03 Eos % (Auto) 0.1 % 02/27/22 02:03 Baso % (Auto) 0.2 % 02/27/22 02:03 Neut # (Auto) 11.25 10^3/uL (1.8-7.7) H 02/27/22 02:03 Lymph # (Auto) 1.0 10^3/uL (0.8-4.8) 02/27/22 02:03 [place] # (Auto) 1.0 10^3/uL (0.2-0.9) H 02/27/22 02:03 Eos # (Auto) 0.0 10^3/uL (0.0-0.8) 02/27/22 02:03 Baso # (Auto) 0.0 10^3/uL (0.0-0.1) 02/27/22 02:03 Nucleated RBC % (auto) 0 % 02/27/22 02:03 Nucleated RBCs # 0.0 /100WBC 02/27/22 02:03 D-Dimer 1.16 ug/mIFEU (0-0.59) H 02/26/22 20:28 Sodium 133 mmol/L (136-145) L 02/27/22 02:03 Potassium 3.6 mmol/L (3.5-5.1) 02/27/22 02:03 Chloride 99 mmol/L (98-107) 02/27/22 02:03 Carbon Dioxide 21 mmol/L (22-29) L 02/27/22 02:03 Anion Gap 16.6 (5-19) 02/27/22 02:03 BUN 12 mg/dL (8-23) 02/27/22 02:03 Creatinine 0.6 mg/dL (0.5-0.9) 02/27/22 02:03 GFR Calculation Not Reportable 02/27/22 02:03 Glucose 111 mg/dL (65-115) 02/27/22 02:03 Estimat Average Glucose 120 02/26/22 20:28 Hemoglobin A1c 5.8 % (4.0-6.0) 02/26/22 20:28 Calculated Osmolality 276 mOsm/kg (285-295) L 02/27/22 02:03 Calcium 9.3 mg/dL (8.5-10.5) 02/27/22 02:03 Magnesium 2.0 mg/dL (1.7-2.3) 02/27/22 02:03 Magnesium Cancelled 02/27/22 02:03 Total Bilirubin 0.8 mg/dL (0.15-1.2) 02/27/22 02:03 AST 18 U/L (0-32) 02/27/22 02:03 ALT 17 U/L (0-33) 02/27/22 02:03 Alkaline Phosphatase 70 IU/L (35-105) 02/27/22 02:03 Troponin T Baseline 7 ng/L (0-10) 02/26/22 16:50 Troponin T 120 Minute 7.78 ng/L (0-10) 02/26/22 20:28 Delta Troponin T 0.78 ABS# (0-10) 02/26/22 20:28 Troponin T Hi Sens 6Hr 9.58 ng/L (0-10) 02/27/22 02:03 Troponin T Hi Sens 6Hr Delta 2.58 ng/L (0-12) 02/27/22 02:03 NT-Pro-B Natriuret Pep 734 pg/mL (0-450) H 02/26/22 20:28 Total Protein 6.6 g/dL (6.6-8.7) 02/27/22 02:03 Albumin 3.6 g/dL (3.5-5.2) 02/27/22 02:03 Globulin 3.0 g/dL (1.3-4.6) 02/27/22 02:03 Triglycerides 64 mg/dL (0-150) 02/26/22 20:28 Cholesterol 170 mg/dL (0-200) 02/26/22 20:28 LDL Cholesterol, Calc 104 mg/dL (50-129) 02/26/22 20: HDL Cholesterol 53 mg/dL (60-100) L 02/26/22: LDL/HDL Ratio 1.96 RATIO (0.00-3.22) 02/26/22: Cholesterol/HDL Ratio 3.21 mg/dL (0.0-4.40) 02/26/22 20: Procalcitonin 0.51 ng/mL (0-0.5) H 02/26/22: TSH 1.94 uIU/mL (0.27-4.20) 02/26/22: Urine Color Yellow (Yellow) 02/27/22 09:45 Urine Appearance Hazy (CLEAR) A 02/27/22 09:45 Urine pH 5 (5-7) 02/27/22 09:45 Ur Specific [place] 1.015 (1.005-1.030) 02/27/22 09:45 Urine Protein 1+ (Negative) H 02/27/22 09:45 Urine Glucose (UA) Norm (Normal) 02/27/22 09:45 Urine Ketones 3+ (Negative) H 02/27/22 09:45 Urine Blood 2+ (Negative) H 02/27/22 09:45 Urine Nitrate Negative (Negative) 02/27/22 09:45 Urine Bilirubin 1+ (Negative) H 02/27/22 09:45 Urine Urobilinogen 1 mg/dL (Negative) H 02/27/22 09:45 Ur Leukocyte Esterase 2+ (Negative) H 02/27/22 09:45 Urine RBC 0-4 /hpf (0-2) H 02/27/22 09:45 Urine WBC 5-10 /hpf (0-5) H 02/27/22 09:45 Ur Squamous Epith Cells 5-10 /hpf (0-5) H 02/27/22 09:45 Ur Renal Epithelial Cell 0 /hpf 02/27/22 09:45 Amorphous Sediment Not Reportable 02/27/22 09:45 Urine Bacteria 1+ /hpf (NONE) H 02/27/22 09:45 Influenza Type A Ag Negative (Negative) 02/27/22 09:50 Influenza Type B Ag Negative (Negative) 02/27/22 09:50 Vitals Last Vital Signs Temp 99.7 F H 02/27/22 03:40 Pulse 80 05/10/22 14:00 Resp 16 02/27/22 12:00 BP 124/58 02/27/22 12:00 Pulse Ox 94 02/27/22 12:00 Discharge Plan Discharge Patient Disposition: Home Condition: Stable Prescriptions: New atorvastatin 40 mg Tablet 80 mg PO DAILY 30 Days Qty: 30 0RF aspirin 81 mg Tablet,Delayed Release (Dr/Ec) 81 mg PO DAILY 30 Days Qty: 30 0RF lisinopril 10 mg Tablet 10 mg PO DAILY 30 Days Qty: 30 0RF nitroglycerin 0.4 mg Tablet, Sublingual 0.4 mg sublingual Q5M PRN (Reason: Chest Pain) 30 Days Qty: 10 0RF cefdinir 300 mg capsule 300 mg PO BID 7 Days Qty: 14 0RF Continued calcium carbonate [Calcium 600] 600 mg calcium (1,500 mg) tablet 600 mg PO DAILY 0RF cyanocobalamin (vitamin B-12) 1,000 mcg capsule 5,000 mcg PO DAILY 0RF ascorbic acid (vitamin C) 500 mg tablet 500 mg PO DAILY 0RF cholecalciferol (vitamin D3) 125 mcg (5,000 unit) capsule 125 mcg PO DAILY 0RF Bystolic 5 mg tablet 5 mg PO DAILY Qty: 90 3RF omeprazole 10 mg capsule,delayed release(DR/EC) 40 mg PO DAILY Qty: 90 1RF Discontinued celecoxib [Celebrex] 200 mg capsule 200 mg PO DAILY 30 Days Qty: 90 1RF Rx Instructions: Stop Ibuprofen Discharge Orders: Discharge Order (Routine); Ordered 02/27/22 Ordered By: Ct Henry Referrals: Allison Mauricio FNP-C [Primary Care Provider] - 4-7 days Taya Prajapati MD [Physician] - 1 week Discharge Diet: Cardiac Discharge Activity: Resume usual activity Patient Instructions: Opioid Safety Discharge Attestations Time Spent in Discharge Care*: less than 30 min Quality Metrics Clinical Quality Measures [ No reported AMI, CVA or VTE this stay] Coding Level of Care Code Acute Chg FW [place] note Diagnoses Unstable angina I20.0 Valvular insufficiency I38 Osteoarthritis of left knee M17.12 Osteoarthritis type: primary GERD (gastroesophageal reflux disease) K21.9 Esophagitis presence: without esophagitis Hypertension I10 Hypertension type: essential hypertension Diastolic dysfunction I51.89
--- NOTE | 2022-02-27 17:23 | CTR_ITS ---
PROCEDURE INFORMATION: Exam: CT Abdomen And Pelvis Without Contrast Exam date and time: 02/27/2022 5:37 PM Age: 81 years old Clinical indication: Condition or disease; Kidney or ureter condition; Chronic kidney disease or failure; Not specified; Additional info: Rule out pyelonephritis TECHNIQUE: Imaging protocol: Computed tomography of the abdomen and pelvis without contrast. Radiation optimization: All CT scans at this facility use at least one of these dose optimization techniques: automated exposure control; mA and/or kV adjustment per patient size (includes targeted exams where dose is matched to clinical indication); or iterative reconstruction. COMPARISON: CR (CHEST, ) 02/26/2022 5:01 PM RADIATION DOSE METRICS: Total DLP (mGy-cm): 1483.25 FINDINGS: Liver: 3.9 cm ill-defined hypoattenuating lesion noted in the right hepatic lobe, not clearly cystic, and incompletely evaluated without IV contrast series 2 image 21. Gallbladder and bile ducts: Normal. No calcified stones. No ductal dilation. Pancreas: Normal. No ductal dilation. Spleen: Normal. No splenomegaly. Adrenal glands: Normal. No mass. Kidneys and ureters: Scattered simple appearing cysts within both kidneys. The largest in the posterior cortex of the left kidney measures 4.5 cm in size. No hydronephrosis. No renal stones. No perinephric or periureteral fat stranding. Stomach and bowel: Colonic diverticulosis without findings of acute diverticulitis. No obstruction. No mucosal thickening. Appendix: No evidence of appendicitis. Intraperitoneal space: No free air. No significant fluid collection. Vasculature: No abdominal aortic aneurysm. Lymph nodes: No enlarged lymph nodes. Urinary bladder: Unremarkable as visualized. Reproductive: Hysterectomy. Bones/joints: No acute fracture. Grade 1 anterolisthesis of L4 on L5 and L5 on S1. Soft tissues: Unremarkable. CT/CT abdomen pelvis wo con [id number] IMPRESSION: 1. Please note, evaluation for acute pyelonephritis is limited without IV contrast. There are no secondary findings that would increase suspicion for pyelonephritis or urinary tract infection such as perinephric or periureteral inflammation/fat stranding or asymmetric enlargement/edematous appearance of the kidneys. 2. 3.9 cm ill-defined hypoattenuating lesion noted in the right hepatic lobe. This is not clearly cystic and is incompletely characterized on noncontrast examination. Given size, an ultrasound should help differentiate between cystic or solid lesion. COMMENTS: Consistent with the [employer]'s Incidental Findings Committee white paper (J Am Pati Radiol 2018): Any incidental renal lesion less than 1 cm or classified as too small to characterize, or any incidental cystic renal lesion characterized as simple-appearing, is likely benign. No follow-up imaging is recommended for these lesions per consensus recommendations based on imaging criteria.
--- NOTE | 2022-02-27 18:03 | PC.NURSE ---
discharge instructions given and explained.pt verb understanding of instructions.ct abd done as ordered.discharged via w/c to exit at 1750.spouse to drive pt home
== END 2022-02-27 17:50 | disposition home or self-care (01) ==
LOC: ER 17:57 → CSU 21:52
PROVIDERS: Internal Medicine; Admitting Provider Internal Medicine; Emergency Provider Emergency Medicine; Family Provider Nurse Practitioner Family; PCP Nurse Practitioner Family; Visit Provider Internal Medicine
DX: I20.0 Unstable angina (principal); I38 Endocarditis, valve unspecified; M17.12 Unilateral primary osteoarthritis, left knee; K21.9 Gastro-esophageal reflux disease without esophagitis; I10 Essential (primary) hypertension; I51.89 Other ill-defined heart diseases; R94.39 Abnormal result of other cardiovascular function study; Z79.82 Long term (current) use of aspirin; N39.0 Urinary tract infection, site not specified; I16.0 Hypertensive urgency
CPT/HCPCS: 36415; 71045; 74176; 78452; 80048; 80053; 80061; 81001; 81003; 83036; 83735; 83880; 84145; 84443; 84484; 85025; 85378; 87040; 87086; 87804; 93005; 93017; 93306; 94664; 96372; 96374; 99285; A9500; G0378; J0696; J1650; J2270; J2405; J2785

== ENCOUNTER 2022-03-01 07:29 | Emergency (ER) | payer MEDICARE, SELFPAY ==
--- NOTE | 2022-03-01 07:32 | ED_ITS ---
HPI - Abdominal Pain General: Chief Complaint: Abdominal Pain Stated Complaint: ABD Pain in the left side Time Seen by Provider: 03/01/22 07:31 History of Present Illness: Ms. Pfeiffer is an 81-year-old lady with history of hypertension, diastolic heart dysfunction, valvular insufficiency presented to the emergency department due to right lower chest and right upper abdominal pain/flank pain. Patient reports first noting some symptoms approximately 2 days ago, initially she thought it was from being in an uncomfortable bed as she was in the hospital for chest pain. She subsequently continued to have symptoms which were worse yesterday. She has subjective fevers and generalized malaise. She is being treated for a urinary tract infection but does not feel that those symptoms are improving. Symptoms are moderate in intensity with increased severity with deep inspiration. Quality is sharp and aching. No correlation with oral intake though she has had poor p.o. intake. No other specific changes in health, exacerbating, or alleviating factors identified. Onset (ago): day(s) Pain Consistency: constant Location: RUQ Severity: moderate Quality: aching and sharp Exacerbating factors: other Review of Systems General: Reports: 10 or more systems reviewed and unremarkable except in HPI and below PFSH ED PFSH: Medical History Cataract BILATERAL SURGERY Diastolic dysfunction GERD (gastroesophageal reflux disease) Hypertension Murmur Valvular insufficiency Surgical History H/O hysterectomy for benign disease History of appendectomy Family History Father Stroke Brother Cancer Other CAD (coronary artery disease) Social History Second hand smoke exposure: No Smoking risk assessment/counseling performed?: No Alcohol intake: never Desire information about alcohol rehabilitation?: No Counseling given: No Desire information about substance/drug rehabilitation?: No Counseling given: No Adopted: No Caregiver/support person: No Lives independently: Yes Household members: spouse Housing: House Marital status: Number of children: 3 service: No Current occupational status: retired Pets and animals: No History of recent travel: No Current gender identity: Female Physical Exam Const: COMMON NORMALS: alert GENERAL APPEARANCE: cooperative and well developed HENMT: COMMON NORMALS: normocephalic and atraumatic HEAD & SCALP: no rmocephalic and atraumatic Eye: COMMON NORMALS: conjunctivae normal CONJUNCTIVA: Yes conjunctivae normal SCLERA: sclerae normal Neck/C-Spine: COMMON NORMALS: supple GENERAL: Yes trachea midline Resp: COMMON NORMALS: normal respiratory effort EFFORT & INSPECTION: Yes able to speak in complete sentences Cardio: COMMON NORMALS: regular rate and regular rhythm RATE: regular rate RHYTHM: regular rhythm GI: COMMON NORMALS: Soft to palpation PALPATION: Yes Soft to palpation, Yes Tenderness to palpation present (GI) Details: RUQ, No Guarding due to palpation present (GI) and No Rigid due to palpation PERCUSSION: normal to percussion Extremity: GENERAL: Yes normal exam except as noted and No edema Neuro: COMMON NORMALS: moves all extremities SENSORIUM/ORIENTATION: Yes alert and No Orientation impaired Psych: COMMON NORMALS: mental status grossly normal and Normal thought process present THOUGHT PROCESS: Normal thought process present Course ED course: - Patient was seen and evaluated by me at bedside - Patient placed on cardiac monitors, IV access obtained - Initial evaluation notable for exam as above - Labs personally interpreted by me -Analgesia given - Labs notable for minimal leukocytosis, normal hemoglobin. Metabolic panel fairly similar to baseline. - Imaging notable for possible acalculous cholecystitis. Imaging including chest x-ray stress test and CT scan from recent history reviewed. - Upon serial reexamination after treatment the patient was improved. She tolerated p.o. intake. - Based on patient history, evaluation, and testing as interpreted the most likely cause of the patient's condition is unclear, possible acalculous cholecystitis. Discussed with general surgery on-call regarding typical management, discharge versus admit both reasonable. - The results of ED evaluation were discussed with the patient including possible disposition options. I discussed possibility of admission for surgery versus trial of outpatient antibiotics. The patient is comfortable with outp atient management and prefers trial of antibiotics. I discussed prescriptions and/or symptomatic cares (if applicable) including appropriate and responsible use, followup plan, and return precautions. The patient verbalized understanding and felt safe for discharge. - Patient discharged in satisfactory condition. Note: Click bubbles or prepopulated mcneil in note writing are used for assistance with data collection and billing and are inherently more limited than narrative and other text portions of this note. Please use narrative for additional clinical history and defer to narrative/free test for any case of contradictory information. If information appears in only free text or click bubble it should be considered present or absent as reported. Please contact note journalists and other writers for clarifications of clinical information or contradictory information. MDM is a brief summary, contradictory or erroneous seeming information should be clarified and full note should be reviewed. Vital Signs: Vital signs: Vital Signs Temperature 100.0 F H 03/01/22 07:37 Pulse Rate 83 03/01/22 12:53 Respiratory Rate 16 03/01/22 12:53 Blood Pressure 129/67 03/01/22 12:53 Pulse Oximetry 95 03/01/22 12:53 MDM - Abdominal Pain Medical Decision Making 81-year-old lady with recent hospitalization including cardiac evaluation presenting to the emergency department for abdominal pain. Ultrasound suggestive of acalculus cholecystitis. Offered admission for cholecystectomy versus discharge with trial of outpatient antibiotics and general surgery follow-up. Patient prefers the latter. Satisfactory for outpatient management with strict return precautions. Medical Records I reviewed the patient's medical records. Lab Data I reviewed the patient's lab results. : 03/01/22 08:44 03/01/22 08:44 Labs/Radiology: Radiology Impressions Abdomen Ultrasound 03/01/22 09:24 IMPRESSION: 1. Mildly hydropic gallbladder with sludge and mild gallbladder wall thickening. Consider acalculous cholecystitis. 2. No bile duct enlargement. 3. Variable density within the liver. Favor these changes are probably related to areas of fatty infiltration and sparing and/or fibrosis. Recommend nonurgent MRI liver with and without contrast. Imaging with in phase and opposed phase should also be obtained. 4. RIGHT renal angiomyolipoma. Laboratory Results WBC 10.2 10^3/uL (4.0-10.0) H 03/01/22 08:44 RBC 3.94 10^6/uL (4.1-5.3) L 03/01/22 08:44 Hgb 11.6 g/dL (11.5-15.3) 03/01/22 08:44 Hct 34.9 % (37.0-47.0) L 03/01/22 08:44 MCV 88.6 fl (81-99) 03/01/22 08:44 MCH 29.4 pg (28.0-34.0) 03/01/22 08:44 MCHC 33.2 g/dL (30.0-36.0) 03/01/22 08:44 RDW 13.1 % (12.1-15.1) 03/01/22 08:44 Plt Count 287 10^3/cmm (130-400) 03/01/22 08:44 MPV 10.4 fL (7.4-10.4) 03/01/22 08:44 Neut % (Auto) 85.6 % 03/01/22 08:44 Lymph % (Auto) 5.4 % 03/01/22 08:44 [place] % (Auto) 8.0 % 03/01/22 08:44 Eos % (Auto) 0.4 % 03/01/22 08:44 Baso % (Auto) 0.2 % 03/01/22 08:44 Neut # (Auto) 8.69 10^3/uL (1.8-7.7) H 03/01/22 08:44 Lymph # (Auto) 0.6 10^3/uL (0.8-4.8) L 03/01/22 08:44 [place] # (Auto) 0.8 10^3/uL (0.2-0.9) 03/01/22 08:44 Eos # (Auto) 0.0 10^3/uL (0.0-0.8) 03/01/22 08:44 Baso # (Auto) 0.0 10^3/uL (0.0-0.1) 03/01/22 08:44 Nucleated RBC % (auto) 0 % 03/01/22 08:44 Nucleated RBCs # 0.0 /100WBC 03/01/22 08:44 Sodium 134 mmol/L (136-145) L 03/01/22 08:44 Potassium 4.0 mmol/L (3.5-5.1) 03/01/22 08:44 Chloride 101 mmol/L (98-107) 03/01/22 08:44 Carbon Dioxide 22 mmol/L (22-29) 03/01/22 08:44 Anion Gap 15.0 (5-19) 03/01/22 08:44 BUN 14 mg/dL (8-23) 03/01/22 08:44 Creatinine 0.6 mg/dL (0.5-0.9) 03/01/22 08:44 GFR Calculation Not Reportable 03/01/22 08:44 Glucose 114 mg/dL (65-115) 03/01/22 08:44 Calculated Osmolality 279 mOsm/kg (285-295) L 03/01/22 08:44 Calcium 9.5 mg/dL (8.5-10.5) 03/01/22 08:44 Total Bilirubin 0.4 mg/dL (0.15-1.2) 03/01/22 08:44 AST 24 U/L (0-32) 03/01/22 08:44 ALT 27 U/L (0-33) 03/01/22 08:44 Alkaline Phosphatase 96 IU/L (35-105) 03/01/22 08:44 Total Protein 7.0 g/dL (6.6-8.7) 03/01/22 08:44 Albumin 3.5 g/dL (3.5-5.2) 03/01/22 08:44 Globulin 3.5 g/dL (1.3-4.6) 03/01/22 08:44 Lipase 23 U/L (13-60) 03/01/22 08:44 Urine Color Dark yellow (Yellow) 03/01/22 09:19 Urine Appearance Clear (CLEAR) 03/01/22 09:19 Urine pH 5 (5-7) 03/01/22 09:19 Ur Specific Speculator 1.015 (1.005-1.030) 03/01/22 09:19 Urine Protein Trace (Negative) 03/01/22 09:19 Urine Glucose (UA) Norm (Normal) 03/01/22 09:19 Urine Ketones 1+ (Negative) H 03/01/22 09:19 Urine Blood Neg (Negative) 03/01/22 09:19 Urine Nitrate Negative (Negative) 03/01/22 09:19 Urine Bilirubin 1+ (Negative) H 03/01/22 09:19 Urine Urobilinogen 4 mg/dL (Negative) H 03/01/22 09:19 Ur Leukocyte Esterase Trace (Negative) H 03/01/22 09:19 Urine RBC None /hpf (0-2) 03/01/22 09:19 Urine WBC 5-10 /hpf (0-5) H 03/01/22 09:19 Ur Squamous Epith Cells 0-4 /hpf (0-5) H 03/01/22 09:19 Amorphous Sediment Not Reportable 03/01/22 09:19 Urine Bacteria Trace /hpf (NONE) 03/01/22 09:19 Discharge Plan Discharge Patient Disposition: Home Clinical Impression: Abdominal pain, Acalculous cholecystitis Condition: Stable Prescriptions: New amoxicillin-pot clavulanate 875-125 mg tablet 1 tab PO BID 14 Days Qty: 28 0RF ondansetron 4 mg tablet,disintegrating 4 mg PO Q8H PRN (Reason: nausea and vomiting) Qty: 15 0RF oxycodone 5 mg tablet 5 mg PO Q6H PRN (Reason: pain) Qty: 14 0RF No Action calcium carbonate [Calcium 600] 600 mg calcium (1,500 mg) tablet 600 mg PO DAILY 0RF cyanocobalamin (vitamin B-12) 1,000 mcg capsule 5,000 mcg PO DAILY 0RF ascorbic acid (vitamin C) 500 mg tablet 500 mg PO DAILY 0RF cholecalciferol (vitamin D3) 125 mcg (5,000 unit) capsule 125 mcg PO DAILY 0RF Bystolic 5 mg tablet 5 mg PO DAILY Qty: 90 3RF omeprazole 10 mg capsule,delayed release(DR/EC) 40 mg PO DAILY Qty: 90 1RF atorvastatin 40 mg Tablet 80 mg PO DAILY 30 Days Qty: 30 0RF lisinopril 10 mg Tablet 10 mg PO DAILY 30 Days Qty: 30 0RF nitroglycerin 0.4 mg Tablet, Sublingual 0.4 mg sublingual Q5M PRN (Reason: Chest Pain) 30 Days Qty: 10 0RF Celebrex 200 mg Capsule 200 mg PO DAILY 0RF Discharge Orders: Discharge ED (Routine); Ordered 03/01/22 Ordered By: Morris Alonzo Referrals: Allison Mauricio FNP-C [Primary Care Provider] - Discharge Diet: Advance as tolerated and Clear Liquid Discharge Activity: Increase activity as tolerated Patient Instructions: Cholecystitis (ED), Abdominal Pain (ED), Opioid Safety Activity Restrictions/Additional Instructions: Thank you for visiting the emergency department. You were seen and evaluated for abdominal pain. As discussed you are found to possibly have a calculus cholecystitis. We will trial treatment with antibiotics at home. I will message case management for follow-up with general surgery. Please follow-up with your primary care provider. Please return to the emergency department for worsening symptoms, inability to tolerate p.o. intake, or anything else that you are concerned about and feel needs emergency department evaluation. 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
[2022-03-01 07:37] VITALS: BP 152/80; PULSE 89; RESP 14; TEMP 37.8; O2SAT 95; BMI 29.9
[2022-03-01 08:24] VITALS: BP 112/68; PULSE 90; O2SAT 94
[2022-03-01 08:47] VITALS: RESP 16; O2SAT 96
[2022-03-01] MEDS: morphine 4 mg/mL SDV 1 mL 2 MG IVP ×2 (08:47→09:32)
[2022-03-01 08:49] LABS: Basophils % 0.2 %; Eosinophils % 0.4 %; Hematocrit 34.9 % (37.0-47.0); Hemoglobin 11.6 g/dL (11.5-15.3); Lymphocytes # 0.6 10^3/uL (0.8-4.8); Lymphocytes % 5.4 %; Mean Corpuscular HGB Conc 33.2 g/dL (30.0-36.0); Mean Corpuscular Hemoglobin 29.4 pg (28.0-34.0); Mean Corpuscular Volume 88.6 fl (81-99); Mean Platelet Volume 10.4 fL (7.4-10.4); Monocytes # 0.8 10^3/uL (0.2-0.9); Neutrophils # 8.69 10^3/uL (1.8-7.7); Neutrophils % 85.6 %; Nucleated Red Blood Cells % 0 %; Platelet Count 287 10^3/cmm (130-400); Red Blood Count 3.94 10^6/uL (4.1-5.3); Red Cell Distribution Width 13.1 % (12.1-15.1); White Blood Count 10.2 10^3/uL (4.0-10.0)
[2022-03-01 09:06] LABS: Alanine Aminotransferase 27 U/L (0-33); Albumin Level 3.5 g/dL (3.5-5.2); Alkaline Phosphatase 96 IU/L (35-105); Aspartate Amino Transferase 24 U/L (0-32); Blood Urea Nitrogen 14 mg/dL (8-23); Calcium 9.5 mg/dL (8.5-10.5); Carbon Dioxide 22 mmol/L (22-29); Chloride 101 mmol/L (98-107); Globulin 3.5 g/dL (1.3-4.6); Glucose 114 mg/dL (65-115); Lipase 23 U/L (13-60); Osmolality Calculated 279 mOsm/kg (285-295); Sodium 134 mmol/L (136-145); Total Bilirubin 0.4 mg/dL (0.15-1.2)
--- NOTE | 2022-03-01 09:24 | US_ITS ---
WS: [id number] RIGHT UPPER QUADRANT ULTRASOUND HISTORY: RUQ/flank pain, biliary, hepatic lesion, hydronephrosis? COMPARISON: CT 02/27/2022 Liver: 12.2 cm in length. Liver evaluation is limited by patient's body habitus. There is a geographi c area of decreased attenuation in the lateral RIGHT lobe of the liver corresponding to the abnormali ty seen on a recent CT. No displacement of the adjacent vessels. This entire area along the periphery measures 5.5 x 2.7 x 5.4 cm. No bile duct dilatation. Portal Vein: Normal hepatopetal flow with monophasic waveform. Gallbladder: Moderate distention of the gallbladder. Small amount of sludge within the lumen. Transve rse diameter of the gallbladder 5.2 cm. There is very mild wall thickening up to 4 mm. CBD: 0.3 cm Pancreas: Normal size and echogenicity. Right kidney: 11.2 cm in length. Normal size kidney. Hyperechoic well-circumscribed nodule in the sup erior pole measures 1.0 x 1.0 x 1.1 cm. There is a low-attenuation lesion on the recent CT suggesting this is an angiomyolipoma. No hydronephrosis. Aorta and IVC: Unremarkable abdominal aorta and IVC. No ascites. US/US abdomen limited 15806 IMPRESSION: 1. Mildly hydropic gallbladder with sludge and mild gallbladder wall thickenin g. Consider acalculous cholecystitis. 2. No bile duct enlargement. 3. Variable density within the liver. Favor these changes are probably relate d to areas of fatty infiltration and sparing and/or fibrosis. Recommend nonurge nt MRI liver with and without contrast. Imaging with in phase and opposed phase should also be obtained. 4. RIGHT renal angiomyolipoma.
[2022-03-01 09:32] VITALS: RESP 16
[2022-03-01 09:34] LABS: Protein Urine Trace (Negative); Specific Gravity, Urine 1.015 (1.005-1.030); Urine Appearance Clear (CLEAR); Urine Color Dark Yellow (Yellow); pH Urine 5 (5-7)
[2022-03-01 09:35] LABS: Add Urine Microscopic? YES; Bilirubin Urine 1+ (Negative); Blood Urine Neg (Negative); Glucose Urine UA Norm (Normal); Ketones Urine 1+ (Negative); Leukocyte Esterase Urine Trace (Negative); Nitrate Urine Negative (Negative); Urobilinogen Urine 4 mg/dL (Negative)
[2022-03-01 09:37] LABS: Add Urine Culture? No; Bacteria Urine TRACE /hpf; Squamous Epithelial Cell Urine 0-4 /hpf (0-5)
[2022-03-01 12:30] VITALS: BP 129/67; PULSE 82; RESP 16; O2SAT 93
[2022-03-01 12:53] VITALS: BP 129/67; PULSE 83; RESP 16; O2SAT 95
== END 2022-03-01 12:55 | disposition home or self-care (01) ==
PROVIDERS: Emergency Provider Emergency Medicine; PCP Nurse Practitioner Family
DX: K81.9 Cholecystitis, unspecified (principal)
CPT/HCPCS: 76705; 80053; 81001; 83690; 85025; 96374; 96376; 99284; J2270

== ENCOUNTER 2022-03-06 | Outpatient (CLI) | payer MEDICARE, SELFPAY | END 2022-03-06 00:01 | disposition home or self-care (01) | LOC: RAD 03-09 09:04 | PROVIDERS: PCP Nurse Practitioner Family; Visit Provider Nurse Practitioner Family | DX: K81.9 Cholecystitis, unspecified (principal) | CPT/HCPCS: 99204 ==

== ENCOUNTER 2022-03-08 09:24 | Day surgery (SDC) | payer MEDICARE, SELFPAY ==
[2022-03-07 10:56] VITALS: BMI 29.9
[2022-03-08] VITALS (15 sets, daily range): BP systolic 116–152; BP diastolic 60–84; PULSE 64–79; RESP 16–22; TEMP 36.2–36.7; O2SAT 91–98
--- NOTE | 2022-03-08 09:38 | P.HP_ITS ---
Same Day Surgery H&P Indication for Procedure/HPI DATE OF PROCEDURE: March 08, 2022 CHIEF COMPLAINT/INDICATIONFOR SURGICAL PROCEDURE: lap forrest PREOP DIAGNOSIS: chronic cholecystitis PLANNED PROCEDURE: Operation Date: 03/08/22 12:10 Proposed Procedures p lap possible open cholecystectomy 56897 K81.9(Not Applicable) - Kentrell Chaidez MD Medications/Allergies* Home Medications Medication Instructions Recorded Confirmed Type calcium carbonate 600 mg calcium 600 mg PO DAILY tab 10/29/19 03/07/22 History (1,500 mg) tablet (Calcium) cyanocobalamin (vitamin B-12) 5,000 mcg PO DAILY cap 10/25/20 03/07/22 History 1,000 mcg capsule ascorbic acid (vitamin C) 500 mg 500 mg PO DAILY 10/24/21 03/07/22 History tablet cholecalciferol (vitamin D3) 125 125 mcg PO DAILY 10/24/21 03/07/22 History mcg (5,000 unit) capsule celecoxib 200 mg capsule (Celebrex) 200 mg PO DAILY 03/01/22 03/07/22 History cefdinir 300 mg capsule 300 mg PO BID 03/06/22 03/07/22 History Allergies/Adverse Reactions Allergy/AdvReac Type Severity Reaction Status Date / Time No Known Allergies Allergy Verified 03/07/22 10:44 Pertinent History/Comorbid Conditions* Medical History (Updated 03/01/22 @ 12:34 by Morris Alonzo MD) Cataract BILATERAL SURGERY Diastolic dysfunction GERD (gastroesophageal reflux disease) Hypertension Murmur Valvular insufficiency Surgical History (Updated 03/06/22 @ 10:35 by Kentrell Chaidez MD) H/O hysterectomy for benign disease History of appendectomy History of colonoscopy History of esophagogastroduodenoscopy Family History (Updated 10/29/19 @ 13:26 by Zonia Guevara RN) CAD (coronary artery disease) Cancer Brother Stroke Father Social History Smoking and tobacco status: never smoked Second hand smoke exposure: No Smoking risk assessment/counseling performed?: No Alcohol intake: never Desire information about alcohol rehabilitation?: No Counseling given: No Desire information about substance/drug rehabilitation?: No Counseling given: No Adopted: No Caregiver/support person: No Lives independently: Yes Household members: spouse Housing: House Marital status: Number of children: 3 service: No Current occupational status: retired Pets and animals: No History of recent travel: No Current gender identity: Female Pertinent Exam Findings alert and regular rate & rhythm Recommendations Surgery/Procedure today Coding Level of Care Code 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
--- NOTE | 2022-03-08 10:11 | ANES.PREANE2 ---
Pre-Anesthetic Assessment Height/Weight: Height 1.52 m Weight 69.4 kg Temp Pulse Resp BP Pulse Ox 98.0 F 79 16 152/84 96 03/08/22 09:45 03/08/22 09:45 03/08/22 09:45 03/08/22 09:45 03/08/22 09:45 Preop Diagnosis: chronic cholecystitis Operation Date: 03/08/22 12:10 Proposed Procedures p lap possible open cholecystectomy 23618 K81.9(Not Applicable) - Kentrell Chaidez MD Familial anesthetic complications: None Was Beta Juliet taken within 24 hours: N/A Was Clonidine taken within 24 hours: N/A Last intake: Intake Last Liquid Date 03/07/22 Last Liquid Time 23:40 Last Solid Date 03/07/22 Last Solid Time 23:40 Social No alcohol and No tobacco Exam alert, oriented x 3, clear to auscultation bilaterally and regular rate & rhythm Airway Submandibular: within normal limits Cervical ROM: within normal limits Mallampati: Class II Dentition: full CV/HEM Hypertension and Murmur LV systolic function is normal with EF of 60-65% ?Grade 1 diastolic dysfunction ?Mild mitral regurgitation GI Gastroesophageal Reflux Disease Metabolic Hyperlipidemia Medications/Allergies Home Medications Medication Instructions Recorded Confirmed Last Taken Type calcium carbonate 600 mg calcium 600 mg PO DAILY tab 10/29/19 03/07/22 02/28/22 History (1,500 mg) tablet (Calcium) cyanocobalamin (vitamin B-12) 5,000 mcg PO DAILY cap 10/25/20 03/07/22 02/28/22 History 1,000 mcg capsule ascorbic acid (vitamin C) 500 mg 500 mg PO DAILY 10/24/21 03/07/22 02/28/22 History tablet cholecalciferol (vitamin D3) 125 125 mcg PO DAILY 10/24/21 03/07/22 02/28/22 History mcg (5,000 unit) capsule nebivolol 5 mg tablet (Bystolic) 5 mg PO DAILY #90 tab 10/24/21 03/08/22 03/08/22 05:30 Rx omeprazole 10 mg capsule,delayed 40 mg PO DAILY #90 cap 01/24/22 03/07/22 02/28/22 Rx release atorvastatin 40 mg tablet 80 mg PO DAILY 30 Days #30 tab 02/27/22 03/07/22 Unknown Rx nitroglycerin 0.4 mg sublingual 0.4 mg SUBLINGUAL Q5M PRN 30 Days 02/27/22 03/07/22 Unknown Rx tablet #10 tab amoxicillin 875 mg-potassium 1 tab PO BID 14 Days #28 tab 03/01/22 03/08/22 03/07/22 Rx clavulanate 125 mg tablet celecoxib 200 mg capsule (Celebrex) 200 mg PO DAILY 03/01/22 03/07/22 02/28/22 History ondansetron 4 mg disintegrating 4 mg PO Q8H PRN #15 tab 03/01/22 03/07/22 Unknown Rx tablet oxycodone 5 mg tablet 5 mg PO Q6H PRN #14 tab 03/01/22 03/07/22 Unknown Rx cefdinir 300 mg capsule 300 mg PO BID 03/06/22 03/08/22 03/07/22 History hydrocodone 5 mg-acetaminophen 325 1 tab PO Q6H PRN #20 tab 03/08/22 Unknown Rx mg tablet Allergies Allergy/AdvReac Type Severity Reaction Status Date / Time No Known Allergies Allergy Verified 03/07/22 10:44 [facility] Anesthesia Medical History Cataract BILATERAL SURGERY Diastolic dysfunction GERD (gastroesophageal reflux disease) Hypertension Murmur Valvular insufficiency Surgical History (Updated 03/08/22 @ 09:40 by Kentrell Chaidez MD) H/O hysterectomy for benign disease History of appendectomy History of colonoscopy History of esophagogastroduodenoscopy Status post laparoscopic cholecystectomy (03/08/22) Family History Father Stroke Brother Cancer Other CAD (coronary artery disease) Social History Smoking and tobacco status: never smoked Second hand smoke exposure: No Smoking risk assessment/counseling performed?: No Alcohol intake: never Desire information about alcohol rehabilitation?: No Counseling given: No Desire information about substance/drug rehabilitation?: No Counseling given: No Adopted: No Caregiver/support person: No Lives independently: Yes Household members: spouse Housing: House Marital status: Number of children: 3 service: No Current occupational status: retired Pets and animals: No History of recent travel: No Current gender identity: Female Data Anesthesia Cardiac Studies: Echocardiogram 02/26/22 Sestamibi Stress Test (Cardiology) 02/26/22
[2022-03-08] MEDS: sodium chloride 0.9% 1,000 ML 30 ML IV (10:13)
--- NOTE | 2022-03-08 10:55 | P.OP_ITS ---
Operative Report Date of procedure: March 08, 2022 Pre-op diagnosis: Chronic cholecystitis Post-op diagnosis: Omentum and antrum of the stomach adherent to the body of the gallbladder Ill-defined mass noted in the right lobe of the liver as seen on prior CT scan and ultrasound, refer to Intra-Op pictures Procedure done: Laparoscopic cholecystectomy Specimens removed/disposition: Gallbladder Surgeon: Kentrell Chaidez Anesthesia: General Condition: stable Disposition: PACU Procedure: The patient was taken to the operating room and was intubated under general anesthesia. After the antibiotic had been administered, the abdomen was prepped and draped in a sterile manner. Using a #15 blade, a 1 centimeter infraumbilical curvilinear incision was made and using an open Geo technique the peritoneal cavity was entered. A 10 millimeter port was placed and 15 millimeters of pneumoperitoneum was created. A 10 millimeter, 30 degrees scope was then introduced. Three 5 millimeter ports were placed in the epigastric, midclavicular and the anterior axillary line two fingerbreadths below the costal margin on the right side under the direct visualization. Ratcheted forceps were introduced into the lateral most port and was used to retract the fundus of the gallbladder cephalad and using forceps the infundibulum of the gallbladder was retracted laterally. The omentum and the antrum of the stomach was adherent to the body of the gallbladder which was taken down using electrocautery. Using L- hook cautery the peritoneum overlying the Calot's triangle was opened medially and laterally until the cystic duct and the cystic artery were skeletonized. Dissection was carried along the body of the gallbladder and after ensuring critical view of safety, 4 clips applied on the cystic duct and 3 clips applied on the cystic artery and cut leaving, 3 clips on the remaining portion of the duct and 2 clips on the remaining portion of the artery. The rest of the gallbladder was dissected off the liver using L-hook cautery. There was no bleeding or bile leaking noted from the gallbladder fossa and the clips appeared to be in place. An EndoCatch bag was introduced to remove the gallbladder. All the ports were removed under direct visualization and there was no bleeding noted from the port sites. The fascia of the umbilicus was closed using [id number] 0 Vicryl sutures and the subcutaneous tissue was approximated using 3-0 Vicryl sutures. The skin at all four ports were closed using 4-0 Monocryl and Dermabond. A total of 10 millimeters of 0.5% Marcaine was infiltrated around the port sites. The patient was stable throughout the procedure.
[2022-03-08] MEDS: fentaNYL 50 mcg/mL INJ 2mL IVP (11:21)
[2022-03-08] MEDS: HYDROcodone-acetaminophen 5-325 mg Tablet 1 TAB PO (12:04)
--- NOTE | 2022-03-08 13:50 | ANE.PACU2 ---
Inpatient post-anesthesia follow up: Airway intact: Yes Vital signs: Temperature 97.8 F Pulse Rate 74 Respiratory Rate 18 Blood Pressure 132/60 Pulse Oximetry 94 Oxygen Delivery Me thod Room Air Oxygen Flow Rate 6 Fraction of Inspir ed Oxygen Hydration adequate: Yes Nausea and vomiting: No Pain level: 2 Mental status: Baseline
== END 2022-03-08 12:35 | disposition home or self-care (01) ==
PROVIDERS: PCP Nurse Practitioner Family; Visit Provider Surgery
PROC: 0FT44ZZ Resection of Gallbladder, Percutaneous Endoscopic Approach (ICD-10-PCS; CPT 47562; principal; 2022-03-08 12:10)
DX: K80.10 Calculus of gallbladder with chronic cholecystitis without obstruction (principal); E78.5 Hyperlipidemia, unspecified; K21.9 Gastro-esophageal reflux disease without esophagitis; I10 Essential (primary) hypertension; Z82.49 Family history of ischemic heart disease and other diseases of the circulatory system; Z82.3 Family history of stroke
CPT/HCPCS: 47562; 88304; J0690; J1100; J1200; J2405; J2704; J2710; J3010; J3490; J7030

== ENCOUNTER → 2022-03-20 10:50 | Outpatient (BNVA) | payer MEDICARE, SELFPAY | PROVIDERS: PCP Nurse Practitioner Family; Visit Provider Surgery | DX: Z98.890 Other specified postprocedural states (principal); Z90.49 Acquired absence of other specified parts of digestive tract | CPT/HCPCS: 99024 ==

== ENCOUNTER → 2022-09-18 11:00 | Outpatient (BNVA) | payer MEDICARE, SELFPAY | PROVIDERS: PCP Nurse Practitioner Family; Visit Provider Nurse Practitioner Family | DX: R05.9 Cough, unspecified (principal) | CPT/HCPCS: 87426 ==

== ENCOUNTER → 2022-10-17 15:01 | Outpatient (BNVA) | payer MEDICARE, SELFPAY | PROVIDERS: PCP Nurse Practitioner Family; Visit Provider Internal Medicine Cardiovascular Disease | DX: R01.1 Cardiac murmur, unspecified (principal); I11.9 Hypertensive heart disease without heart failure | CPT/HCPCS: 99214 ==

== ENCOUNTER 2022-11-29 14:56 | Outpatient (CLI) | payer MEDICARE, SELFPAY ==
--- NOTE | 2022-11-29 15:15 | USCV_ITS ---
Antonina Pfeiffer Age: 81 Gender: F : 1940 Exam Date: 11/29/2022 15:03 Ordering Phys: Allison Mauricio-Shakira Technologist: BOBBY [place] [facility] [place]: Stenosis Risk Factors: Previous Vascular Surgery: Right Brachial BP: / Left Brachial BP: / Right Left Velocity (cm/s) Spectral Plaque Velocity (cm/s) Spectral Plaque Syst/Diast Broadening Syst/Diast Broadening 101.40/14.30 Prox CCA 77.20 / 17.60 81.60/ 14.30 Mid CCA 77.20 / 16.50 50.50/ 10.10 Distal CCA 91.50 / 20.90 44.70/ 7.90 Prox ICA 77.20 / 19.80 40.80/ 7.20 Mid ICA 57.30 / 19.80 79.50/ 22.20 Distal ICA 73.90 / 24.30 126.80 ECA 79.40 0.78 ICA/CCA 0.84 Antegrade Vertebral Antegrade 36.30/ 4.30 cm/s 41.90/ 3.10 cm/s Tri Subclavian Tri 163.1 98.10 0 CONCLUSIONS Right ICA stenosis <50%. Mild atheromatous plaque right carotid bulb/ICA. Left ICA stenosis <50%. Mild atheromatous plaque left carotid bulb/ICA. Normal antegrade Doppler flow noted in the right vertebral artery. Normal antegrade Doppler flow noted in the left vertebral artery. Davian Serrano MD (Electronically Signed) Final Date: 30 November 2022 11:27 S
== END 2022-11-29 14:57 | disposition home or self-care (01) ==
PROVIDERS: PCP Nurse Practitioner Family; Visit Provider Nurse Practitioner Family
DX: I65.29 Occlusion and stenosis of unspecified carotid artery (principal)
CPT/HCPCS: 93880

== ENCOUNTER 2022-12-15 13:38 | Observation (INO) | payer MEDICARE, SELFPAY ==
[2022-12-15] VITALS (9 sets, daily range): BP systolic 171–220; BP diastolic 78–146; PULSE 64–79; RESP 16–20; TEMP 36.8–37.2; O2SAT 92–97; BMI 30.2; BMI 29.7
--- NOTE | 2022-12-15 13:49 | CTR_ITS ---
PROCEDURE INFORMATION: Exam: CT Head Without Contrast Exam date and time: 12/15/2022 2:02 PM Age: 81 years old Clinical indication: Stroke-like symptoms; Right facial droop; Additional info: Facial droop onset 0700 TECHNIQUE: Imaging protocol: Computed tomography of the head without contrast. Radiation optimization: All CT scans at this facility use at least one of these dose optimization techniques: automated exposure control; mA and/or kV adjustment per patient size (includes targeted exams where dose is matched to clinical indication); or iterative reconstruction. Other technique: STROKE PROTOCOL was implemented. REPORTING DATA: Count of CT and Cardiac NM exams in prior 12 months: This patient has received 2 known CTs and 0 known cardiac nuclear medicine studies in the 12 months prior to the current study. COMPARISON: No relevant prior studies available. RADIATION DOSE METRICS: Total DLP (mGy-cm): 1064.98 FINDINGS: Brain: No intra or extra-axial masses, lesions or collections. Andrew white matter distinction is maintained throughout the brain. No radiographic evidence of intracranial hemorrhage. No CT evidence of mass hemorrhage or acute infarction. Cerebral ventricles: Ventricles are of normal size and configuration. Paranasal sinuses: Visualized sinuses are unremarkable. No fluid levels. Mastoid air cells: Visualized mastoid air cells are well aerated. Bones/joints: Unremarkable. No acute fracture. Soft tissues: Unremarkable. Vasculature: Linear focus of high density within the right sylvian fissure possibly a dense branch of the middle cerebral artery although also possibly volume averaging. Correlate clinically regarding left-sided symptoms. Consider MRI if indicated. See image numbers [address]/CT head wo con* [id number] IMPRESSION: 1. Linear focus of high density within the right sylvian fissure possibly a dense branch of the middle cerebral artery although also possibly volume averaging. Correlate clinically regarding left-sided symptoms. Consider MRI if indicated. See image numbers 20 through 23 series 3. 2. No acute intracranial process is appreciated. ASSESSMENT: ASPECTS ([facility] Stroke Program Early CT Score) is 10.
[2022-12-15 15:32] LABS: Glucose Point of Care 88 mg/dL (70-110)
--- NOTE | 2022-12-15 15:34 | W.ED.NEUROSD ---
HPI - Neuro Symptoms/Deficit General: Chief Complaint: Neuro Symptoms/Deficit Stated Complaint: stroke symptoms Time Seen by Provider: 12/15/22 15:34 History of Present Illness: Ms. Lemos is an 81-year-old lady with history of hypertension, diastolic heart disease, valvular heart disease presenting to the emergency department for possible strokelike symptoms. She reports being at her baseline health and woke up with symptoms this morning noted some facial droop which she feels like is more on the left side. She also had nausea and dry heaves associated with disequilibrium feeling. She does note that she received Botox around the left eye 5 days ago and initially thought that it was just related however friends noticed significantly dysarthric speech and so she came to the emergency department for further evaluation. Onset (ago): hour(s) Location: left face History of same: No Severity: moderate Associated symptoms: Reports malaise and other Review of Systems General: Reports: 10 or more systems reviewed and unremarkable except in HPI and below Const: Reports: malaise PFSH ED PFSH: Medical History Cataract BILATERAL SURGERY Diastolic dysfunction GERD (gastroesophageal reflux disease) Hypertension Murmur Valvular insufficiency Surgical History H/O hysterectomy for benign disease History of appendectomy History of colonoscopy History of esophagogastroduodenoscopy Status post laparoscopic cholecystectomy (03/08/22) Family History Father Stroke Brother Cancer Other CAD (coronary artery disease) Social History Smoking and tobacco status: never smoked Second hand smoke exposure: No Smoking risk assessment/counseling performed?: No Alcohol intake: never Desire information about alcohol rehabilitation?: No Counseling given: No Desire information about substance/drug rehabilitation?: No Counseling given: No Adopted: No Caregiver/support person: No Lives independently: Yes Household members: spouse Housing: House Marital status: Number of children: 3 service: No Current occupational status: retired Pets and animals: No Current gender identity: Female Physical Exam Const: COMMON NORMALS: patient oriented x3 and alert GENERAL APPEARANCE: cooperative and well developed HENMT: COMMON NORMALS: normocephalic and atraumatic HEAD & SCALP: normocephalic and atraumatic THROAT: posterior oropharynx normal Eye: COMMON NORMALS: conjunctivae normal CONJUNCTIVA: Yes conjunctivae normal SCLERA: sclerae normal Neck/C-Spine: COMMON NORMALS: supple GENERAL: Yes trachea midline Resp: COMMON NORMALS: normal respiratory effort and clear to auscultation bilaterally EFFORT & INSPECTION: Yes able to speak in complete sentences AUSCULTATION: clear to auscultation bilaterally Cardio: COMMON NORMALS: regular rate and regular rhythm RATE: regular rate RHYTHM: regular rhythm GI: COMMON NORMALS: Soft to palpation PALPATION: Yes Soft to palpation and No Tenderness to palpation present (GI) Extremity: GENERAL: Yes normal exam except as noted and No edema Neuro: COMMON NORMALS: patient oriented x3, moves all extremities and no sensory deficits noted; negative for CN's II-XII intact bilaterally and negative for no focal motor deficits SENSORIUM/ORIENTATION: Yes alert and No Orientation impaired OTHER: Right sided facial droop Psych: COMMON NORMALS: mental status grossly normal and Normal thought process present THOUGHT PROCESS: Normal thought process present Course Vital Signs: Vital signs: Vital Signs Temperature 98.5 F 12/17/22 07:29 Pulse Rate 65 12/17/22 14:23 Respiratory Rate 12 12/17/22 14:23 Blood Pressure 152/85 12/17/22 14:23 Pulse Oximetry 95 12/17/22 14:23 Oxygen Delivery Me thod 12/17/22 11:55 MDM - Neuro Symptoms/Deficit Medical Decision Making 81-year-old lady presenting with strokelike symptoms. She woke up with symptoms and was last normal at 11 PM last night. Exam as above. Patient is not a tPA candidate. EKG notable for sinus rhythm with incomplete right bundle branch block. Normal axis and intervals. No STEMI. Labs with no significant hematologic or metabolic abnormalities to explain symptoms. CT head negative for acute pathology. Right sided density inconsistent with right sided symptoms. Most likely etiology of patient's symptoms is strokelike symptoms. The results of ED evaluation were discussed with the patient including plan for admission due to requirement for level of care not available if discharged to prevent significant worsening/deterioration. Patient agreeable with plan. Discussed with hospitalist service who was agreeable to admit patient. Medical Records I reviewed the patient's medical records. Lab Data I reviewed the patient's lab results. 12/15/22 16:00 12/15/22 16:[address] 12/15/22 13:49 IMPRESSION: 1. Linear focus of high density within the right sylvian fissure possibly a dense branch of the middle cerebral artery although also possibly volume averaging. Correlate clinically regarding left-sided symptoms. Consider MRI if indicated. See image numbers 20 through 23 series 3. 2. No acute intracranial process is appreciated. ASSESSMENT: ASPECTS ([facility] Stroke Program Early CT Score) is 10. ADDENDUM: 12/15/22 [id number] The above was read and discussed at approximately 2:31 PM [employer] on12/15/2022 with the attending physician , Morris Tillman. Head MRI 12/17/22 09:30 IMPRESSION: 1. No evidence of restricted diffusion to suggest acute ischemia. 2. Mild small vessel changes with mild parenchymal volume loss. 3. Paranasal sinuses and mastoid air cells well aerated. 4. No hemosiderin on susceptibly weighted images. 5. No other acute findings. Laboratory Results WBC 6.7 10^3/uL (4.0-10.0) 12/15/22 16:00 RBC 4.54 10^6/uL (4.1-5.3) 12/15/22 16:00 Hgb 13.1 g/dL (11.5-15.3) 12/15/22 16:00 Hct 40.7 % (37.0-47.0) 12/15/22 16:00 MCV 89.6 fl (81-99) 12/15/22 16:00 MCH 28.9 pg (28.0-34.0) 12/15/22 16:00 MCHC 32.2 g/dL (30.0-36.0) 12/15/22 16:00 RDW 13.0 % (12.1-15.1) 12/15/22 16:00 Plt Count 289 10^3/cmm (130-400) 12/15/22 16:00 MPV 10.4 fL (7.4-10.4) 12/15/22 16:00 Neut % (Auto) 71.2 % 12/15/22 16:00 Lymph % (Auto) 20.8 % 12/15/22 16:00 Mora % (Auto) 5.8 % 12/15/22 16:00 Eos % (Auto) 1.5 % 12/15/22 16:00 Baso % (Auto) 0.4 % 12/15/22 16:00 Neut # (Auto) 4.74 10^3/uL (1.8-7.7) 12/15/22 16:00 Lymph # (Auto) 1.4 10^3/uL (0.8-4.8) 12/15/22 16:00 Mora # (Auto) 0.4 10^3/uL (0.2-0.9) 12/15/22 16:00 Eos # (Auto) 0.1 10^3/uL (0.0-0.8) 12/15/22 16:00 Baso # (Auto) 0.0 10^3/uL (0.0-0.1) 12/15/22 16:00 Nucleated RBC % (auto) 0 % 12/15/22 16:00 Nucleated RBCs # 0.0 /100WBC 12/15/22 16:00 Sodium 134 mmol/L (136-145) L 12/15/22 16:00 Potassium 4.1 mmol/L (3.5-5.1) 12/15/22 16:00 Chloride 101 mmol/L (98-107) 12/15/22 16:00 Carbon Dioxide 23 mmol/L (22-29) 12/15/22 16:00 Anion Gap 14.1 (5-19) 12/15/22 16:00 BUN 18 mg/dL (8-23) 12/15/22 16:00 Creatinine 0.6 mg/dL (0.5-0.9) 12/15/22 16:00 GFR Calculation Not Reportable 12/15/22 16:00 Glucose 94 mg/dL (65-115) 12/15/22 16:00 POC Glucose 88 mg/dL (70-110) 12/15/22 15:29 Estimat Average Glucose 108 12/15/22 16:00 Hemoglobin A1c 5.4 % (4.0-6.0) 12/15/22 16:00 Calculated Osmolality 280 mOsm/kg (285-295) L 12/15/22 16:00 Calcium 9.4 mg/dL (8.5-10.5) 12/15/22 16:00 Total Bilirubin 0.3 mg/dL (0.15-1.2) 12/15/22 16:00 AST 14 U/L (0-32) 12/15/22 16:00 ALT 13 U/L (0-33) 12/15/22 16:00 Alkaline Phosphatase 78 U/L (35-105) 12/15/22 16:00 Troponin T Baseline 9 ng/L (0-10) 12/15/22 16:00 Troponin T 120 Minute 8.31 ng/L (0-10) 12/15/22 18: Delta Troponin T -0.69 ABS# (0-10) L 12/15/22 18: Total Protein 6.6 g/dL (6.6-8.7) 12/15/22 16:00 Albumin 3.9 g/dL (3.5-5.2) 12/15/22 16:00 Globulin 2.7 g/dL (1.3-4.6) 12/15/22 16:00 Triglycerides 171 mg/dL (0-150) H 12/15/22 18:31 Cholesterol 203 mg/dL (0-200) H 12/15/22 18:31 LDL Cholesterol, Calc 120 mg/dL (50-129) 12/15/22 18: HDL Cholesterol 49 mg/dL (60-100) L 12/15/22 18: LDL/HDL Ratio 2.45 RATIO (0.00-3.22) 12/15/22 18: Cholesterol/HDL Ratio 4.14 mg/dL (0.0-4.40) 12/15/22 18: TSH 2.13 uIU/mL (0.27-4.20) 12/15/22 18:31 Urine Color Yellow (Yellow) 12/15/22 18:07 Urine Appearance Hazy (CLEAR) A 12/15/22 18: Urine pH 6.5 (5-7) 12/15/22 18: Ur Specific [place] 1.010 (1.005-1.030) 12/15/22 18:07 Urine Protein Neg (Negative) 12/15/22 18:07 Urine Glucose (UA) Norm (Normal) 12/15/22 18: Urine Ketones Negative (Negative) 12/15/22 18: Urine Blood Neg (Negative) 12/15/22 18:07 Urine Nitrate Negative (Negative) 12/15/22 18:07 Urine Bilirubin Neg (Negative) 12/15/22 18:07 Urine Urobilinogen Neg mg/dL (Negative) 12/15/22 18:07 Ur Leukocyte Esterase Negative (Negative) 12/15/22 18:07 Discharge Plan Discharge Patient Disposition: Placed in Observation Admit Provider: Jose Guadalupe Maldonado Clinical Impression: Stroke Discharge Diet: As Directed and Cardiac Coding Level of Care Code ED Agribusiness 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
--- NOTE | 2022-12-15 16:05 | ECG_ITS ---
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 Measurements Intervals Allen Rate: 57 P: 33 MN: 195 QRS: 16 QRSD: 98 T: 49 QT: 410 QTc: 401 Interpretive Statements SINUS BRADYCARDIA INCOMPLETE RIGHT BUNDLE BRANCH BLOCK [90+ ms QRS DURATION, TERMINAL R IN V1/V2, 40+ ms S IN I/aVL/V4/V5/V6] Compared to ECG 02/27/2022 04:34:49 Sinus rhythm no longer present Electronically Signed On 12-15-2022 20:50:04 [employer] by Orlin Spear M.D. [email or web address]
[2022-12-15 16:12] LABS: Basophils % 0.4 %; Eosinophils # 0.1 10^3/uL (0.0-0.8); Eosinophils % 1.5 %; Hematocrit 40.7 % (37.0-47.0); Hemoglobin 13.1 g/dL (11.5-15.3); Lymphocytes # 1.4 10^3/uL (0.8-4.8); Lymphocytes % 20.8 %; Mean Corpuscular HGB Conc 32.2 g/dL (30.0-36.0); Mean Corpuscular Hemoglobin 28.9 pg (28.0-34.0); Mean Corpuscular Volume 89.6 fl (81-99); Mean Platelet Volume 10.4 fL (7.4-10.4); Monocytes # 0.4 10^3/uL (0.2-0.9); Monocytes % 5.8 %; Neutrophils # 4.74 10^3/uL (1.8-7.7); Neutrophils % 71.2 %; Nucleated Red Blood Cells % 0 %; Platelet Count 289 10^3/cmm (130-400); Red Blood Count 4.54 10^6/uL (4.1-5.3); White Blood Count 6.7 10^3/uL (4.0-10.0)
[2022-12-15 16:38] LABS: Troponin(5th) Baseline 9 ng/L (0-10)
[2022-12-15 16:42] LABS: Alanine Aminotransferase 13 U/L (0-33); Albumin Level 3.9 g/dL (3.5-5.2); Alkaline Phosphatase 78 U/L (35-105); Anion Gap 14.1 (5-19); Aspartate Amino Transferase 14 U/L (0-32); Blood Urea Nitrogen 18 mg/dL (8-23); Calcium 9.4 mg/dL (8.5-10.5); Carbon Dioxide 23 mmol/L (22-29); Chloride 101 mmol/L (98-107); Globulin 2.7 g/dL (1.3-4.6); Glucose 94 mg/dL (65-115); Osmolality Calculated 280 mOsm/kg (285-295); Potassium 4.1 mmol/L (3.5-5.1); Sodium 134 mmol/L (136-145); Thyroid Stimulating Hormone 2.16 uIU/mL (0.27-4.20); Total Bilirubin 0.3 mg/dL (0.15-1.2); Total Protein 6.6 g/dL (6.6-8.7)
--- NOTE | 2022-12-15 17:43 | PC.NURSE ---
PHYSICIAN NOTIFIED OF PT'S HYPERTENSION. NO NEW VERBAL ORDERS AT THIS TIME.
--- NOTE | 2022-12-15 17:59 | PM.HP ---
Providers/Chief Complaint Primary Care Provider: SHUKRI Baum Chief Complaint: stroke symptoms History of Present Illness Antonina Pfeiffer is a 81 year old female with a past medical history of diastolic CHF, hypertension who presents to [facility] due to right facial droop, and word finding difficulties. Patient's last known well normal was 11 PM 12/14/2022 before she went to bed. She tells me for the week she has not been feeling well, she cannot put her finger on it, but she just has not been feeling her normal self, no chest pain, no palpitations, no fevers, no chills, no cough. She does tell me that she woke up at roughly 230 to use the bathroom, she actually picked out her window to see if her grandkids were home, she did not notice any weakness no numbness she did not see herself in the bathroom air at all. When she woke up at 7 AM this morning, her noticed a right facial droop but it was quite mild, she tells me that she has chronic word finding difficulties such as she did not know how to come up with a word wheelbarrow, this has been going on for the last 6 months. But more than usual she had word finding difficulties no focal weakness, no paresthesias, she was walking okay. 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 But nothing more out of the usual for her. When she saw her grand daughter who is her primary care physician, who noticed a right facial droop told her to come to the emergency room. She does tell me that she did receive Botox in the left eye roughly 5 days ago. She gets spasms of her eyelids, and of her mouth for which she receives Botox. Its been over a year since she is recent ever received Botox around her mouth. But 5 days ago she received Botox in the left eye. She also had some mild dysarthria which was noticed by friends. Her NIH stroke scale on examination is 4, I cannot really detect a word finding difficulty, very mild slurring of her words, no other focal weakness. She does report that her equilibrium was off when she did get up out of bed but no dizziness no vertigo, no falls, no trouble walking she actually walked into the emergency room. She is out of the tPA window. Head CT 1. ? Linear focus of high density within the right sylvian fissure possibly a dense branch of the middle cerebral artery although also possibly volume averaging. Correlate clinically regarding left-sided symptoms. Consider MRI if indicated. See image numbers 20 through 23 series 3. 2. ? No acute intracranial process is appreciated. ? -However symptoms are on the right side, no history of defibrillation, no atrial fibrillation seen on telemetry -Hospitalist team was called for admission Review of Systems Const: Denies: fever(s), chills, fatigue or malaise Eyes: Denies: change in vision or blurry vision ENMT: Denies: nasal congestion Card: Denies: chest pain Resp: Denies: dyspnea, productive cough, non-productive cough or wheezing GI: Denies: abdominal pain, nausea, vomiting, hematemesis, diarrhea, constipation, hematochezia or melena : Denies: flank pain, dysuria or urinary frequency Musc: Denies: neck pain or back pain Skin/Breast: Denies: rash Neuro: Denies: headache(s), dizziness or vertigo Psych: Denies: anxiety or depression Endo: Denies: polyuria or polydipsia Medications/Allergies Home Medications Medication Instructions Recorded Confirmed Last Taken Type calcium carbonate 600 mg calcium 600 mg PO DAILY 10/29/19 10/02/22 02/28/22 History (1,500 mg) tablet (Calcium) cyanocobalamin (vitamin B-12) 5,000 mcg PO DAILY 10/25/20 10/02/22 02/28/22 History 1,000 mcg capsule ascorbic acid (vitamin C) 500 mg 500 mg PO DAILY 10/24/21 10/02/22 02/28/22 History tablet cholecalciferol (vitamin D3) 125 125 mcg PO DAILY 10/24/21 10/02/22 02/28/22 History mcg (5,000 unit) capsule celecoxib 200 mg capsule (Celebrex) 200 mg PO DAILY 03/01/22 10/02/22 02/28/22 History docusate sodium 100 mg capsule 100 mg PO BID #30 caps 03/08/22 10/02/22 Unknown Rx (Colace) omeprazole 40 mg capsule,delayed 40 mg PO DAILY #90 caps 04/11/22 10/02/22 Unknown Rx release triamcinolone acetonide 0.1 % 1 applic topical TID #30 grams 10/02/22 10/02/22 Unknown Rx topical cream nebivolol 5 mg tablet (Bystolic) 5 mg PO DAILY #90 tabs 12/14/22 Unknown Rx Allergies Allergy/AdvReac Type Severity Reaction Status Date / Time No Known Allergies Allergy Verified 12/15/22 13:43 PFSH Acute PFSH: Medical History Cataract BILATERAL SURGERY Diastolic dysfunction GERD (gastroesophageal reflux disease) Hypertension Murmur Valvular insufficiency Surgical History H/O hysterectomy for benign disease History of appendectomy History of colonoscopy History of esophagogastroduodenoscopy Status post laparoscopic cholecystectomy (03/08/22) Family History Father Stroke Brother Cancer Other CAD (coronary artery disease) Social History Smoking and tobacco status: never smoked Second hand smoke exposure: No Smoking risk assessment/counseling performed?: No Alcohol intake: never Desire information about alcohol rehabilitation?: No Counseling given: No Desire information about substance/drug rehabilitation?: No Counseling given: No Adopted: No Caregiver/support person: No Lives independently: Yes Household members: spouse Housing: House Marital status: Number of children: 3 service: No Current occupational status: retired Pets and animals: No Current gender identity: Female Vitals/I&O/Wt Last Vital Signs Temp 98.2 F 12/15/22 13:43 Pulse 66 12/15/22 17:00 Resp 16 12/15/22 17:00 BP 198/91 12/15/22 17:00 Pulse Ox 92 12/15/22 17:00 O2 Del Method 12/15/22 13:43 Weight last 48 hrs Weight 70.307 kg Physical Exam Const: COMMON NORMALS: no acute distress and patient oriented x3 HENMT: COMMON NORMALS: normocephalic HEAD & SCALP: normocephalic Eye: COMMON NORMALS: Equal, round and reactive pupils present and EOMs intact bilaterally Neck/C-Spine: COMMON NORMALS: no JVD Lymph: LYMPHATIC: no lymphadenopathy noted Resp: COMMON NORMALS: normal respiratory effort, No retractions, No use of accessory muscles and clear to auscultation bilaterally AUSCULTATION: clear to auscultation bilaterally Cardio: COMMON NORMALS: no JVD, regular rate, regular rhythm, S1 normal heart sound present and S2 normal heart sound present RATE: regular rate RHYTHM: regular rhythm HEART SOUNDS: S1 normal heart sound present and S2 normal heart sound present GI: COMMON NORMALS: Normal to inspection, nondistended, normoactive bowel sounds present, Soft to palpation, non-tender, No hepatosplenomegaly present, no masses and no bruits PALPATION: Yes Soft to palpation and Yes No hepatosplenomegaly present Back/Pelvis: COMMON NORMALS: no CVA tenderness Extremity: COMMON NORMALS: no calf tenderness and no pedal edema Neuro: COMMON NORMALS: patient oriented x3, CN's II-XII intact bilaterally, moves all extremities, no focal motor deficits and no sensory deficits noted OTHER: On examination has right facial droop, the corner of her right mouth is droop, she is able to close her eyelid, her forehead brow reflex on the right side is a bit reduced, but is hard to compare to the left as she has received Botox Psych: COMMON NORMALS: mental status grossly normal Data 12/15/22 16:00 12/15/22 16:00 A&P Assessment and plan (1) Stroke: (2) Hypertension: Qualifiers: Hypertension type: essential hypertension Qualified Code(s): I10 - Essential (primary) hypertension Plan CVA versus atypical Torres's palsy -Her only symptom that I could see is her right facial droop at the corner of her mouth -Brow reflexes are difficult to compare to but slightly reduced on the right but she is received Botox on the left eyelid -She does have chronic word finding difficulty, but that is one of her complaints -Mild dysarthria, but she tells me to some degree that is chronic Plan -Aspirin, statin, IV fluids -Neurochecks, aspiration precautions, night stroke scale -Lipid panel, hemoglobin A1c -Cardiac echo -MRI of the brain -Allow for permissive hypertension, treat systolic blood pressure if greater than 220 diastolic of greater than 120 -Telemetry monitoring -Prednisone 60 mg once daily with acyclovir for possible Torres's palsy -Full code -Lovenox for DVT prophylaxis Attestations Medical Necessity Statement*: Patient requires hospitalization, outpatient with observation, for CVA Coding Level of Care Code Acute Code for [facility]g Fwd Diagnoses Stroke I63.9 Hypertension I10 Hypertension type: essential hypertension
--- NOTE | 2022-12-15 18:00 | ECG_ITS ---
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 Measurements Intervals [place] Rate: 63 P: 26 MI: 177 QRS: 20 QRSD: 105 T: 49 QT: 397 QTc: 408 Interpretive Statements SINUS RHYTHM INCOMPLETE RIGHT BUNDLE BRANCH BLOCK [90+ ms QRS DURATION, TERMINAL R IN V1/V2, 40+ ms S IN I/aVL/V4/V5/V6] Compared to ECG 12/15/2022 16:05:32 Sinus bradycardia no longer present Electronically Signed On 12-15-2022 20:51:39 PORTABLE MACHINE SANDER by Orlin Spear M.D. [id number]
[2022-12-15] MEDS: hyDRALAzine 25 mg Tablet 12.5 MG PO (18:02)
[2022-12-15 18:22] LABS: Add Urine Microscopic? NO; Charge for UA Resulting for Rev
[2022-12-15 18:29] LABS: Bilirubin Urine Neg (Negative); Blood Urine Neg (Negative); Glucose Urine UA Norm (Normal); Ketones Urine Negative (Negative); Leukocyte Esterase Urine Negative (Negative); Nitrate Urine Negative (Negative); Protein Urine Neg (Negative); Urine Appearance Hazy (CLEAR); Urine Color Yellow (Yellow); Urobilinogen Urine Neg (Negative); pH Urine 6.5 (5-7)
[2022-12-15 18:54] LABS: Troponin 5 2HR 8.31 ng/L (0-10)
[2022-12-15] MEDS: pantoprazole 40 mg SDV IVP (19:26)
[2022-12-15] MEDS: aspirin 325 mg Tablet 81 MG PO (19:26)
[2022-12-15] MEDS: enoxaparin 40 mg/0.4 mL Syringe SUBCUT (19:26)
[2022-12-15] MEDS: sodium chloride 0.9% 1,000 ML 100 ML IV (19:27)
[2022-12-15] MEDS: predniSONE 20 mg Tablet 60 MG PO (19:27)
[2022-12-15] MEDS: docusate sodium 100 mg Capsule PO (19:27)
[2022-12-15 19:30] LABS: Troponin 5 2HR Delta -0.69 ABS# (0-10)
[2022-12-15 19:32] LABS: Chol HDL Ratio 4.14 mg/dL (0.0-4.40); Cholesterol 203 mg/dL (0-200); HDL Cholesterol 49 mg/dL (60-100); LDL Cholesterol Calculated 120 mg/dL (50-129); LDL HDL Ratio 2.45 RATIO (0.00-3.22); Thyroid Stimulating Hormone 2.13 uIU/mL (0.27-4.20); Triglycerides 171 mg/dL (0-150)
[2022-12-15] MEDS: artificial tears Op Soln 15 mL Btl 1 DROP EYE-RIGHT ×2 (20:48→23:34)
[2022-12-15] MEDS: acyclovir 400 mg Tablet PO ×2 (20:48→23:33)
[2022-12-15] MEDS: atorvastatin 40 mg Tablet PO (20:48)
--- NOTE | 2022-12-15 21:52 | ECG_ITS ---
[facility] Test Date: 2022-12-16 Pat Name: Antonina Pfeiffer Department: Room: 104 Gender: Female Manager Long Term Care: : 1940 Requested By: Morris Alonzo Order Number: [id number] Martin MD: Orlin Spear M.D. Measurements Intervals [place] Rate: 65 P: 29 ND: 184 QRS: 37 QRSD: 97 T: 38 QT: 417 QTc: 434 Interpretive Statements SINUS RHYTHM INCOMPLETE RIGHT BUNDLE BRANCH BLOCK [90+ ms QRS DURATION, TERMINAL R IN V1/V2, 40+ ms S IN I/aVL/V4/V5/V6] Compared to ECG 12/15/2022 18:00:16 No significant changes Electronically Signed On 12-16-2022 15:18:31 BRINE TANK OPERATOR by Orlin Spear M.D. [id number]
[2022-12-15 23:08] LABS: Troponin 5 6HR 8.34 ng/L (0-10)
[2022-12-15 23:15] LABS: Troponin 5 6HR Delta -0.66 ng/L (0-12)
[2022-12-16] VITALS (12 sets, daily range): BP systolic 172–199; BP diastolic 87–108; PULSE 65–98; RESP 16–22; TEMP 36.7–37.1; O2SAT 92–96
[2022-12-16 01:34] LABS: Estmated Average Glucose 108; Hemoglobin A1C 5.4 % (4.0-6.0)
[2022-12-16] MEDS: sodium chloride 0.9% 1,000 ML 100 ML IV (04:37)
--- NOTE | 2022-12-16 06:00 | USCV_ITS ---
Antonina Pfeiffer Age: 81 Gender: F : 1940 Exam Date: 12/16/2022 09:22 Ordering Phys: Jose Guadalupe Maldonado MD Technologist: GRISEL Exam Location: [facility] [place] Indication: cva BP: / HR: Rhythm: Sinus Technical Quality: Adequate MEASUREMENTS (Male / Female) Normal Values FINDINGS Left Ventricle Left ventricle is normal in size. LV systolic function is normal with EF of 60-65%. No regional wall motion abnormalities are seen. Grade 1 diastolic dysfunction Right Ventricle The right ventricle is normal in size and function. Right Atrium The right atrium is normal in size. Left Atrium The left atrium is normal in size. Mitral Valve Structurally normal mitral valve without significant stenosis or prolapse. There is trace mitral regurgitation. Aortic Valve Structurally normal aortic valve without significant sclerosis or stenosis. There is no aortic regurgitation. Tricuspid Valve Mild tricuspid regurgitation. Pulmonary artery systolic pressure is normal Pulmonic Valve Not well visualized Pericardium Normal pericardium without effusion. Aorta Normal ascending aorta dimension. IVC The inferior vena cava appears normal. CONCLUSIONS Technically limited quality echocardiogram because of poor ultrasonic windows. LV systolic function is normal with EF of 60 to 65%. Grade 1 diastolic dysfunction Trace mitral regurgitation Mild tricuspid regurgitation Compared to prior echocardiogram from 02/2022, no significant changes are seen Orlin Spear MD (Electronically Signed) Final Date: 16 December 2022 11:51 S
[2022-12-16] MEDS: acyclovir 400 mg Tablet PO ×5 (06:32→21:51)
[2022-12-16] MEDS: artificial tears Op Soln 15 mL Btl 1 DROP EYE-RIGHT ×3 (06:32→17:47)
[2022-12-16] MEDS: aspirin 81 mg EC Tablet PO (10:01)
[2022-12-16] MEDS: calcium carb-vit d 600mg/400unit 1 Tablet 1 EACH PO (10:01)
[2022-12-16] MEDS: docusate sodium 100 mg Capsule PO (10:01)
[2022-12-16] MEDS: cholecalciferol (vitamin D3) 5,000 unit Tablet 5000 UNIT PO (10:02)
[2022-12-16] MEDS: cyanocobalamin 1,000 mcg Tablet 5000 MCG PO (10:03)
[2022-12-16] MEDS: ascorbic acid 500 mg Tablet PO (10:03)
--- NOTE | 2022-12-16 15:24 | P.PN_ITS ---
Subjective Subjective: Patient was seen this morning she continues to have a right facial droop at the corner of her right lip, does have some diminished eyebrow raise on the right, but it is improved, no difficulty swallowing, no trouble ambulating Vitals/I&O/Wt Last Vital Signs Temp 98.2 F 12/16/22 04:00 Pulse 98 12/16/22 13:08 Resp 18 12/16/22 13:08 BP 172/87 12/16/22 13:08 Pulse Ox 94 12/16/22 11:41 O2 Del Method 12/16/22 11:41 12/16/22 12/16/22 12/16/22 06:59 14:59 22:59 Intake Total 916.667 / 1036.667 240 / 240 0 / 240 Balance 916.667 / 1036.667 240 / 240 0 / 240 Weight last 48 hrs Weight 69.201 kg Weight 70.307 kg Physical Exam Const: COMMON NORMALS: no acute distress and patient oriented x3 Resp: COMMON NORMALS: normal respiratory effort, No retractions, No use of accessory muscles and clear to auscultation bilaterally AUSCULTATION: clear to auscultation bilaterally Cardio: COMMON NORMALS: regular rate, regular rhythm, S1 normal heart sound present and S2 normal heart sound present RATE: regular rate RHYTHM: regular rhythm HEART SOUNDS: S1 normal heart sound present and S2 normal heart sound present GI: COMMON NORMALS: Normal to inspection, nondistended, normoactive bowel sounds present and non-tender Extremity: COMMON NORMALS: no pedal edema Neuro: COMMON NORMALS: patient oriented x3, CN's II-XII intact bilaterally, moves all extremities and no focal motor deficits OTHER: Right right drooping right corner of the mouth Psych: COMMON NORMALS: mental status grossly normal Data 12/15/22 16:00 12/15/22 16:00 A&P Assessment and plan (1) Stroke: (2) Hypertension: Qualifiers: Hypertension type: essential hypertension Qualified Code(s): I10 - Essential (primary) hypertension Plan CVA versus atypical Torres's palsy -To me this more seems like Torres's palsy than a CVA -Her only symptom that I could see is her right facial droop at the corner of her mouth, she does have some right brow deficits on the right compared to the left -She does have chronic word finding difficulty, but that is one of her complaints -Mild dysarthria, but she tells me to some degree that is chronic, resolved today Plan -Aspirin, statin, stop IV fluids -Neurochecks, aspiration precautions, night stroke scale -Lipid panel triglycerides 171, hemoglobin A1c 5.4 -Cardiac echo -MRI of the brain -Allow for permissive hypertension, treat systolic blood pressure if greater than 220 diastolic of greater than 120 -Telemetry monitoring -Prednisone 60 mg once daily with acyclovir for possible Torres's palsy -Full code -Lovenox for DVT prophylaxis Attestations Medical Necessity Statement*: Patient requires hospitalization for acute CVA versus Torres's palsy Coding Level of Care Code Acute Code for [facility] Fwd Diagnoses Stroke I63.9 Hypertension I10 Hypertension type: essential hypertension
[2022-12-16] MEDS: enoxaparin 40 mg/0.4 mL Syringe SUBCUT (17:39)
[2022-12-16] MEDS: pantoprazole 40 mg SDV IVP (17:39)
[2022-12-16] MEDS: predniSONE 20 mg Tablet 60 MG PO (17:40)
[2022-12-16] MEDS: atorvastatin 40 mg Tablet PO (21:51)
[2022-12-17] VITALS (8 sets, daily range): BP systolic 152–199; BP diastolic 85–118; PULSE 65–75; RESP 12–26; TEMP 36.9; O2SAT 93–95
[2022-12-17] MEDS: acyclovir 400 mg Tablet PO ×3 (05:33→14:24)
[2022-12-17] MEDS: artificial tears Op Soln 15 mL Btl 1 DROP EYE-RIGHT (05:34)
--- NOTE | 2022-12-17 08:28 | PC.NURSE ---
off unit at the MRI
[2022-12-17] MEDS: cyanocobalamin 1,000 mcg Tablet 5000 MCG PO (09:13)
[2022-12-17] MEDS: calcium carb-vit d 600mg/400unit 1 Tablet 1 EACH PO (09:14)
[2022-12-17] MEDS: aspirin 81 mg EC Tablet PO (09:14)
[2022-12-17] MEDS: ascorbic acid 500 mg Tablet PO (09:14)
[2022-12-17] MEDS: cholecalciferol (vitamin D3) 5,000 unit Tablet 5000 UNIT PO (09:14)
--- NOTE | 2022-12-17 09:30 | MR_ITS ---
WS: [id number] MRI HEAD WITHOUT CONTRAST TECHNIQUE: Sagittal T1, T2 axial, T2 axial FLAIR, axial and coronal T1 images, axial susceptibility w eighted imaging, axial diffusion weighted images, and coronal T2 images were obtained. CLINICAL INFORMATION: cva COMPARISON: CT head 2022 FINDINGS: No evidence of restricted diffusion to suggest acute ischemia. Ventricular system and basal cisterns are patent. Mild small vessel changes. Mild parenchymal volume loss. Normal posterior fossa. Normal v ascular flow voids at the skull base. No extra-axial fluid collections. No evidence of mass or mass e ffect. Paranasal sinuses and mastoid air cells are well aerated. Normal posterior nasopharynx. Normal parapharyngeal fat. No hemosiderin on susceptibly weighted images. Temporal lobes and hippocampal formations are normal i n appearance. Normal optic chiasm and pituitary infundibulum. Normal cavernous sinuses and Meckel's c ave. MR/MR head wo con* [id number] IMPRESSION: 1. No evidence of restricted diffusion to suggest acute ischemia. 2. Mild small vessel changes with mild parenchymal volume loss. 3. Paranasal sinuses and mastoid air cells well aerated. 4. No hemosiderin on susceptibly weighted images. 5. No other acute findings.
[2022-12-17] MEDS: amlodipine 5 mg Tablet PO (11:52)
--- NOTE | 2022-12-17 12:22 | PC.CHAP ---
Pastoral Care Encounter/Spiritual Assessment Type of Contact [] Declined apple picking supervisor visit [] Patient/Family/Request visit [] Outpatient visit [] Follow-up visit [] Physician referral [] Code/Alert [x] Routine visit [] Staff referral [] Actively dying [] Patient sleeping [x] Family support [] [] Out of room [] Palliative care [] [] Receiving care in room [] Pre-surgical visit [] Trauma [] Long length of stay [] ICU visit [] Other: Relational/Emotional Strength [x] Patient feels connected with others/family/visitors/staff [] Distress [] Loneliness/isolation [] Abandonment Spirituality of Patient [x] Person of [place] [x] Attends [employer] of their [place] x] Believes in Prayer [] Reads Bible or Sabianist materials [] There are Spiritual issues to be addressed Press Pipe Inspector Interventions x[] Prayer [x] Active listening x [] Non-anxious presence [] Spiritual/emotional support [] Crisis/trauma care [] Spiritual counseling [] Bereavement support [] Provided bereavement packet [] Provided Bible/devotional materials [] Provided toy/stuffed animal, coloring book to patient or family member [] Provided Communion [] Anointing/[place] [] Salvation [x] Completed spiritual assessment [] Other: Impact on Illness or Injury [] Angry [] Fearful [] Anxious [] Often cries [] Exhaustion [] Unable to work [] Unable to attend congregation [] Unable to walk/stand [] Unable to read [] Unable to drive [] Unable to eat/drink [] Unable to sleep [] Unable to be with family [] Patient intubated [] Other: Summary Time spent with patient 10 min
--- NOTE | 2022-12-17 14:28 | PM.DCS ---
Discharge Providers Date of Admission: 12/15/22 18:38 Date of Discharge: December 17, 2022 Attending Provider at Admission: Jose Guadalupe Maldonado MD Attending Provider at Discharge: Russ Doshi Primary Care Provider: SHUKRI Baum Diagnoses at Discharge Discharge Diagnosis (1) Stroke: Status: Acute (2) Hypertension: Status: Chronic Qualifiers: Hypertension type: essential hypertension Qualified Code(s): I10 - Essential (primary) hypertension Reason for Visit Reason for Visit: stroke symptoms Hospital Course Hospital Course Pleasant 81-year-old lady was admitted after presenting with right-sided facial droop and word finding difficulties. Word finding difficulties are a chronic problem. She has also had on and off paresthesias in the right arm, although on additional questioning does report having osteoarthritis and chronic neck issues. She did also have a Botox injection 5 days ago but this was around the left eye. On presentation she was assessed for possible acute CVA on presentation also with noted mild dysarthria. Plain CT of the head showed linear focus of high density within right sylvian fissure possibly a dense branch of MCA also possibly volume averaging. Otherwise without acute intracranial process. She was outside tPA window. Recent carotid Doppler study in the beginning of November was entirely unremarkable. She was additionally assessed in the hospital with risk factors of CVA. Is noted to be hypertensive, blood pressures were coming up high to as high as 199/95, although she has not received her Bystolic. 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 A1c was checked and was normal. Lipid profile with mild elevation of cholesterol, as prescription with her she is okay with starting on statin. She was additionally assessed by therapy, including speech therapy and is recommended to continue speech therapy after discharge. Today she is doing well without other symptoms. She started on amlodipine due to hypotension before her home medication was confirmed. Blood pressure improved down to 150/85. She denies any other new complaints. Intends to continue work with speech therapy. Was also assessed by TTE which showed normal EF, grade 1 diastolic dysfunction, trace MVR, trace TVR. Underwent MRI assessment which did not show acute CVA. She would like to continue on low-dose aspirin due to chronic word finding difficulty and consideration whether there was a tiny stroke not picked up on MRI as well as prophylactic, she is aware of risk of bleeding. Please follow-up with her for reassessment. Continue to optimize risk factors of cardiovascular disease. Physical Exam Const: COMMON NORMALS: patient oriented x3 and alert GENERAL APPEARANCE: cooperative ORIENTATION/CONSCIOUSNESS: Yes awake HENMT: COMMON NORMALS: oropharynx normal Neck/C-Spine: COMMON NORMALS: no JVD Resp: COMMON NORMALS: normal respiratory effort and clear to auscultation bilaterally AUSCULTATION: clear to auscultation bilaterally Cardio: COMMON NORMALS: no JVD, regular rhythm, S1 normal heart sound present, S2 normal heart sound present and No murmurs present (Cardio) RHYTHM: regular rhythm HEART SOUNDS: S1 normal heart sound present and S2 normal heart sound present GI: COMMON NORMALS: Normal to inspection, nondistended, normoactive bowel sounds present, Soft to palpation and non-tender PALPATION: Yes Soft to palpation Extremity: COMMON NORMALS: no joint enlargement and no pedal edema Neuro: COMMON NORMALS: patient oriented x3 and moves all extremities SENSORIUM/ORIENTATION: Yes alert OTHER: Right-sided facial droop She is otherwise keenly awake and alert, conversive, following directions readily. No trouble tracking. Sensation otherwise intact although does report intermittent paresthesia of the right upper extremity. No pronator drift. No difficulties with coordination. Skin: COMMON NORMALS: no rashes or lesions noted GENERAL SKIN EXAM: no rashes or lesions noted Discharge Data Studies Completed and Pending Completed Studies During Hospitalization Category Date Time Status CT head wo con* [id number] Stat Cat Scan 12/15/22 13:49 Completed MR head wo con* [id number] Stat MRI 12/17/22 09:30 Completed CV. echo complete* [id number] Stat Ultrasound 12/16/22 06:00 Completed Radiology Impressions Head CT 12/15/22 13:49 IMPRESSION: 1. Linear focus of high density within the right sylvian fissure possibly a dense branch of the middle cerebral artery although also possibly volume averaging. Correlate clinically regarding left-sided symptoms. Consider MRI if indicated. See image numbers 20 through 23 series 3. 2. No acute intracranial process is appreciated. ASSESSMENT: ASPECTS ([place] Stroke Program Early CT Score) is 10. ADDENDUM: 12/15/22 [id number] The above was read and discussed at approximately 2:31 PM IT SENIOR ANALYST on12/15/2022 with the attending physician , Morris Tillman. Head MRI 12/17/22 09:30 IMPRESSION: 1. No evidence of restricted diffusion to suggest acute ischemia. 2. Mild small vessel changes with mild parenchymal volume loss. 3. Paranasal sinuses and mastoid air cells well aerated. 4. No hemosiderin on susceptibly weighted images. 5. No other acute findings. Laboratory Results WBC 6.7 10^3/uL (4.0-10.0) 12/15/22 16:00 RBC 4.54 10^6/uL (4.1-5.3) 12/15/22 16:00 Hgb 13.1 g/dL (11.5-15.3) 12/15/22 16:00 Hct 40.7 % (37.0-47.0) 12/15/22 16:00 MCV 89.6 fl (81-99) 12/15/22 16:00 MCH 28.9 pg (28.0-34.0) 12/15/22 16:00 MCHC 32.2 g/dL (30.0-36.0) 12/15/22 16:00 RDW 13.0 % (12.1-15.1) 12/15/22 16:00 Plt Count 289 10^3/cmm (130-400) 12/15/22 16:00 MPV 10.4 fL (7.4-10.4) 12/15/22 16:00 Neut % (Auto) 71.2 % 12/15/22 16:00 Lymph % (Auto) 20.8 % 12/15/22 16:00 Latimer % (Auto) 5.8 % 12/15/22 16:00 Eos % (Auto) 1.5 % 12/15/22 16:00 Baso % (Auto) 0.4 % 12/15/22 16:00 Neut # (Auto) 4.74 10^3/uL (1.8-7.7) 12/15/22 16:00 Lymph # (Auto) 1.4 10^3/uL (0.8-4.8) 12/15/22 16:00 Latimer # (Auto) 0.4 10^3/uL (0.2-0.9) 12/15/22 16:00 Eos # (Auto) 0.1 10^3/uL (0.0-0.8) 12/15/22 16:00 Baso # (Auto) 0.0 10^3/uL (0.0-0.1) 12/15/22 16:00 Nucleated RBC % (auto) 0 % 12/15/22 16:00 Nucleated RBCs # 0.0 /100WBC 12/15/22 16:00 Sodium 134 mmol/L (136-145) L 12/15/22 16:00 Potassium 4.1 mmol/L (3.5-5.1) 12/15/22 16:00 Chloride 101 mmol/L (98-107) 12/15/22 16:00 Carbon Dioxide 23 mmol/L (22-29) 12/15/22 16:00 Anion Gap 14.1 (5-19) 12/15/22 16:00 BUN 18 mg/dL (8-23) 12/15/22 16:00 Creatinine 0.6 mg/dL (0.5-0.9) 12/15/22 16:00 GFR Calculation Not Reportable 12/15/22 16:00 Glucose 94 mg/dL (65-115) 12/15/22 16:00 POC Glucose 88 mg/dL (70-110) 12/15/22 15:29 Estimat Average Glucose 108 12/15/22 16:00 Hemoglobin A1c 5.4 % (4.0-6.0) 12/15/22 16:00 Calculated Osmolality 280 mOsm/kg (285-295) L 12/15/22 16:00 Calcium 9.4 mg/dL (8.5-10.5) 12/15/22 16:00 Total Bilirubin 0.3 mg/dL (0.15-1.2) 12/15/22 16:00 AST 14 U/L (0-32) 12/15/22 16:00 ALT 13 U/L (0-33) 12/15/22 16:00 Alkaline Phosphatase 78 U/L (35-105) 12/15/22 16:00 Troponin T Baseline 9 ng/L (0-10) 12/15/22 16:00 Troponin T 120 Minute 8.31 ng/L (0-10) 12/15/22 18:27 Delta Troponin T -0.69 ABS# (0-10) L 12/15/22 18:27 Troponin T Hi Sens 6Hr 8.34 ng/L (0-10) 12/15/22 22:40 Troponin T Hi Sens 6Hr Delta -0.66 ng/L (0-12) L 12/15/22 22:40 Total Protein 6.6 g/dL (6.6-8.7) 12/15/22 16:00 Albumin 3.9 g/dL (3.5-5.2) 12/15/22 16:00 Globulin 2.7 g/dL (1.3-4.6) 12/15/22 16:00 Triglycerides 171 mg/dL (0-150) H 12/15/22 18:31 Cholesterol 203 mg/dL (0-200) H 12/15/22 18: LDL Cholesterol, Calc 120 mg/dL (50-129) 12/15/22 18: HDL Cholesterol 49 mg/dL (60-100) L 12/15/22 18: LDL/HDL Ratio 2.45 RATIO (0.00-3.22) 12/15/22 18: Cholesterol/HDL Ratio 4.14 mg/dL (0.0-4.40) 12/15/22 18:31 TSH 2.13 uIU/mL (0.27-4.20) 12/15/22 18:31 Urine Color Yellow (Yellow) 12/15/22 18:07 Urine Appearance Hazy (CLEAR) A 12/15/22 18:07 Urine pH 6.5 (5-7) 12/15/22 18:07 Ur Specific [place] 1.010 (1.005-1.030) 12/15/22 18:07 Urine Protein Neg (Negative) 12/15/22 18:07 Urine Glucose (UA) Norm (Normal) 12/15/22 18:07 Urine Ketones Negative (Negative) 12/15/22 18:07 Urine Blood Neg (Negative) 12/15/22 18:07 Urine Nitrate Negative (Negative) 12/15/22 18:07 Urine Bilirubin Neg (Negative) 12/15/22 18:07 Urine Urobilinogen Neg mg/dL (Negative) 12/15/22 18:07 Ur Leukocyte Esterase Negative (Negative) 12/15/22 18:07 Vitals Last Vital Signs Temp 98.5 F 12/17/22 07:29 Pulse 65 12/17/22 14:00 Resp 26 H 12/17/22 11:55 BP 152/85 12/17/22 13:46 Pulse Ox 95 12/17/22 11:55 O2 Del Method 12/17/22 11:55 Discharge Plan Discharge Patient Disposition: Home Condition: Stable Prescriptions: New amlodipine 5 mg Tablet 5 mg PO DAILY Qty: 90 0RF aspirin 81 mg Tablet,Delayed Release (Dr/Ec) 81 mg PO DAILY Qty: 90 0RF atorvastatin 40 mg Tablet 40 mg PO BEDTIME Qty: 90 0RF Valtrex 1 gram tablet 1,000 mg PO BID 5 Days Qty: 10 0RF prednisone 20 mg tablet 20 mg PO BID 10 Days Qty: 20 0RF prednisone 5 mg tablet 5 mg PO BID Qty: 20 0RF Continued calcium carbonate [Calcium 600] 600 mg calcium (1,500 mg) tablet 600 mg PO DAILY cyanocobalamin (vitamin B-12) 1,000 mcg capsule 5,000 mcg PO DAILY ascorbic acid (vitamin C) 500 mg tablet 500 mg PO DAILY cholecalciferol (vitamin D3) 125 mcg (5,000 unit) capsule 125 mcg PO DAILY triamcinolone acetonide 0.1 % cream 1 applic topical TID Qty: 30 0RF omeprazole 40 mg capsule,delayed release(DR/EC) 40 mg PO DAILY Qty: 90 1RF Bystolic 5 mg tablet 5 mg PO DAILY Qty: 90 3RF Discontinued celecoxib [Celebrex] 200 mg Capsule 200 mg PO DAILY Discharge Orders: Discharge Order (Routine); Ordered 12/17/22 Ordered By: Russ Doshi Other Ambulatory Orders: Speech Language Pathology Eval and Treat Outpatient (Order) Timeframe: 1 Day Facility: [facility] - Location: [facility] [place] Ordered By: Russ Doshi Referrals: Allison Mauricio FNP-C [Primary Care Provider] - 12/24/22 1:20 am (Please follow-up on Saturday, December 24 at 1:20P.M. If you have any questions or need to reschedule. Please call ) Discharge Diet: As Directed and Cardiac Patient Instructions: Prednisone (By mouth), Acyclovir (By mouth), Aspirin (By mouth), Atorvastatin (By mouth), Torres Palsy (GEN), Soft Diet (DC), Hypertension (DC), Aspiration Precautions (DC), Stroke Stoplight Activity Restrictions/Additional Instructions: Continue dysphagia level 6 diet - soft and bite-size with thin liquids. Continue aspiration precautions. Follow-up with speech therapy outpatient. Follow-up with your primary doctor for reassessment of Torres's palsy. Have your primary doctor recheck kidney function after acyclovir. Follow-up with your primary doctor also to reassess your blood pressures due to blood pressures rising rather high while in the hospital (although without Bystolic). Please discontinue Celebrex (celecoxib) and discussed with the primary doctor. This medication may contribute to hypertension and high blood pressures as well as increased risk of stroke and heart attack. Follow-up with your primary doctor regarding chronic neck problems and intermittent right arm paresthesia. Discharge Attestations Time Spent in Discharge Care*: greater than 30 min Quality Metrics Clinical Quality Measures [ No reported AMI, CVA or VTE this stay] Coding Level of Care Code Acute Code for [facility] Fwd Diagnoses Stroke I63.9 Hypertension I10 Hypertension type: essential hypertension
== END 2022-12-17 15:23 | disposition home or self-care (01) ==
LOC: ER 17:21 → CSU 18:29
PROVIDERS: Admitting Provider Family Medicine; Emergency Provider Emergency Medicine; PCP Nurse Practitioner Family; Visit Provider Internal Medicine
DX: G51.0 Bell's palsy (principal); I45.10 Unspecified right bundle-branch block; I11.0 Hypertensive heart disease with heart failure; I50.30 Unspecified diastolic (congestive) heart failure; K21.9 Gastro-esophageal reflux disease without esophagitis
CPT/HCPCS: 36415; 36416; 70450; 70551; 80053; 80061; 81003; 82962; 83036; 84443; 84484; 85025; 92507; 92523; 92526; 92610; 93005; 93306; 94664; 96372; 99285; C9113; G0378; J1650; J7030; J7512; J8499

== ENCOUNTER 2023-01-09 06:00 | Outpatient (RCR) | payer MEDICARE, SELFPAY | END 2023-01-18 23:59 | disposition home or self-care (01) | LOC: TST 06:00 | PROVIDERS: Visit Provider Internal Medicine | DX: G51.0 Bell's palsy (principal) | CPT/HCPCS: 92507; 92523 ==

== ENCOUNTER 2023-01-19 01:00 | Outpatient (RCR) | payer MEDICARE, SELFPAY | END 2023-02-17 23:59 | disposition home or self-care (01) | LOC: TST 01:00 | PROVIDERS: Visit Provider Internal Medicine | DX: G51.0 Bell's palsy (principal) | CPT/HCPCS: 92507 ==

== ENCOUNTER → 2023-02-12 10:58 | Outpatient (BNVA) | payer MEDICARE, SELFPAY | PROVIDERS: PCP Nurse Practitioner Family; Visit Provider Internal Medicine Cardiovascular Disease | DX: G51.0 Bell's palsy (principal); I11.9 Hypertensive heart disease without heart failure; Z79.82 Long term (current) use of aspirin | CPT/HCPCS: 99213 ==

== ENCOUNTER → 2023-07-24 11:01 | Outpatient (BNVA) | payer MEDICARE, SELFPAY | PROVIDERS: PCP Nurse Practitioner Family; Visit Provider Nurse Practitioner | DX: M25.579 Pain in unspecified ankle and joints of unspecified foot; M20.11 Hallux valgus (acquired), right foot; S82.491A Other fracture of shaft of right fibula, initial encounter for closed fracture; X58.XXXA Exposure to other specified factors, initial encounter | CPT/HCPCS: 73610; 73630 ==

== ENCOUNTER → 2023-09-04 13:53 | Outpatient (BNVA) | payer MEDICARE, SELFPAY | PROVIDERS: PCP Nurse Practitioner Family; Visit Provider Nurse Practitioner Family | DX: S82.891A Other fracture of right lower leg, initial encounter for closed fracture (principal); X58.XXXA Exposure to other specified factors, initial encounter | CPT/HCPCS: 73610 ==

== ENCOUNTER → 2023-09-25 11:06 | Outpatient (BNVA) | payer MEDICARE, SELFPAY | PROVIDERS: PCP Nurse Practitioner Family; Visit Provider Internal Medicine Cardiovascular Disease | DX: I11.9 Hypertensive heart disease without heart failure (principal) | CPT/HCPCS: 99213 ==

== ENCOUNTER → 2024-05-22 10:22 | Outpatient (BNVA) | payer MEDICARE, SELFPAY | PROVIDERS: PCP Nurse Practitioner Family; Visit Provider Nurse Practitioner Family | DX: K59.01 Slow transit constipation (principal); I10 Essential (primary) hypertension; R07.9 Chest pain, unspecified | CPT/HCPCS: 80053; 80061; 84443; 85025 ==

== ENCOUNTER → 2024-05-28 14:41 | Outpatient (BNVA) | payer MEDICARE, SELFPAY | PROVIDERS: PCP Nurse Practitioner Family; Visit Provider Internal Medicine | DX: I11.9 Hypertensive heart disease without heart failure (principal); R07.9 Chest pain, unspecified; R01.1 Cardiac murmur, unspecified; K21.9 Gastro-esophageal reflux disease without esophagitis | CPT/HCPCS: 99214 ==

== ENCOUNTER 2024-06-01 14:38 | Outpatient (CLI) | payer MEDICARE, SELFPAY ==
--- NOTE | 2024-06-01 15:00 | CT_ITS ---
WS: [id number] CT ABDOMEN AND PELVIS WITH CONTRAST HISTORY: R10.9 - Unspecified abdominal pain TECHNIQUE: Imaging performed of the abdomen and pelvis with IV contrast. Single phase imaging of the abdomen. Coronal and sagittal reformats are submitted. All CT scans at [facility] use at [facility] one of these dose optimization techniques: automated exposure control; mA and/or kV adjustment per patient size (includes targeted exams where dose is matched to clinical indication); or iterative re construction. IV CONTRAST: Omnipaque 350; 100 mL IV. Oral contrast: Yes. DLP: 346.85 mGy.cm COMPARISON: 02/27/2022 Lower thorax: Lung bases are clear. Mild cardiomegaly. Moderate-sized hiatal hernia. Liver/biliary system: Normal size with no intrahepatic dilatation. Gallbladder: Prior cholecystectomy. No bile duct dilatation. Pancreas: Normal size pancreas and pancreatic duct. No adjacent inflammation. Spleen: Normal size spleen. No mass or infarct. Adrenal glands: Normal. Right kidney: Normal size kidney. There are cortical hypodensities which are too small to characteriz e. No solid mass or obstruction. Left kidney: Normal size kidney. Multiple renal cysts are identified. The largest in the superior teresa e measures 4.8 x 4.7 cm. No solid mass. Aorta: Moderate atherosclerosis. There is a small amount of soft plaque at the origin of the SMA with minimal stenosis. Lymphadenopathy: None. Free fluid: None. GI tract: Nondistended stomach. No small bowel obstruction. There is marked fecal retention throughou t majority of the colon. There is severe constipation with the RIGHT colon being dilated to 5.7 cm in diameter. Appendix is not definitely identified. There is increasing fluid and fecal material in the descending colon. Increasing diverticular disease and wall enhancement. There is a long segment of w all thickening and luminal narrowing and a few scattered diverticula. There is a focal complex collec tion containing fluid and air in the wall of the sigmoid measuring 3.0 x 2.6 cm. Suspect this is prob ably an intramural abscess. The wall is not well formed. There is surrounding small bowel. There is v ariable density and enhancement distally. Abdominal wall: Unremarkable abdominal wall. No hernia. Pelvis: There is a small amount of free fluid in the pelvis. Prior hysterectomy. Partially distended urinary bladder. Bilateral patent inguinal canals. The RIGHT inguinal canal contains a loop of nondil ated small bowel. LEFT inguinal hernia contains fat only. Bones: L3 and L4 anterolisthesis. L4 anterolisthesis by [address]/CT abdomen pelvis w con* [id number] IMPRESSION: 1. Marked colon dilatation with a component of obstruction. There is a large a mount of fecal material proximal to the sigmoid colon. 2. At the sigmoid colon there is wall thickening with mild pericolonic inflamm ation and diverticular disease. There is abnormal enhancement involving the sig moid submucosa extending over a long segment. Suspect there is probably an intr amural abscess developing in the medial sigmoid measuring 3.0 x 2.6 cm. This wo uld not be accessible for percutaneous drainage as there is encasing small claudia l. Recommend evaluation for sigmoid diverticulitis with developing intramural a bscess. Colonoscopy should also be performed as the acute episode resolves to e xclude a mass contributing to the obstruction and the wall enhancement. 3. RIGHT inguinal hernia containing nondilated small bowel. 4. Fat-containing LEFT inguinal hernia. 5. Moderate atherosclerosis aorta with a small amount of plaque in the proxima l SMA. 6. Prior cholecystectomy. 7. Moderate hiatal hernia. 8. LEFT renal cysts. Notified SHUKRI Baum at 06/02/2024 9:07 AM.
[2024-06-01] MEDS: iohexol 350 mg/mL 500 mL Btl (per mL) PO (15:16)
[2024-06-01] MEDS: iohexol 350 mg/mL 500 mL Btl (per mL) IV (16:23)
== END 2024-06-01 14:39 | disposition home or self-care (01) ==
LOC: RAD 14:38
PROVIDERS: PCP Nurse Practitioner Family; Visit Provider Nurse Practitioner Family
DX: K57.92 Diverticulitis of intestine, part unspecified, without perforation or abscess without bleeding (principal); K59.39 Other megacolon; K40.30 Unilateral inguinal hernia, with obstruction, without gangrene, not specified as recurrent; Z90.710 Acquired absence of both cervix and uterus; K44.9 Diaphragmatic hernia without obstruction or gangrene; I70.0 Atherosclerosis of aorta; Z90.49 Acquired absence of other specified parts of digestive tract; Q61.02 Congenital multiple renal cysts; M43.16 Spondylolisthesis, lumbar region
CPT/HCPCS: 74177; 80053; 80061; 84443; 85025; Q9967

== ENCOUNTER 2024-06-23 13:45 | Outpatient (CLI) | payer MEDICARE, SELFPAY ==
--- NOTE | 2024-06-23 13:45 | USCV_ITS ---
Antonina Pfeiffer Age: 83 Gender: F : 1940 Exam Date: 06/23/2024 14:16 Ordering Phys: Orlin Spear M.D ([email or web address]) Technologist: CT Exam Location: [facility] Indication: BP: 122 / 76 HR: 62 Rhythm: Sinus Technical Quality: Adequate MEASUREMENTS (Male / Female) Normal Values 2D ECHO LVOT Diameter 2.0 cm LV Ejection Fraction MOD 4C 66.7 % LV Ejection Fraction MOD 2C 41.1 % LV Ejection Fraction 2C AL 40.4 % LA Diameter 3.1 cm RA Systolic Volume 4C AL 51.0 ml RA Systolic Volume 4C MOD 50.3 ml LA Sys Volume AL 41.4 cm cubed LA Sys Volume Index AL 24.3 cm cubed/m squared Aorta at Sinotubular Diameter 2.3 cm IVC Diameter 2.0 cm M-MODE LA Ao Ratio MM 1.6 AV Cusp Separation MM 1.7 cm DOPPLER AV Peak Velocity 169.0 cm/s LVOT Peak Velocity 123.0 cm/s AV Area Cont Eq vti 2.9 cm squared AV Area Cont Eq pk 2.4 cm squared MV Peak Velocity 136.0 cm/s MV Area PHT 2.9 cm squared Mitral E to A Ratio 0.7 TV Peak Velocity 221.5 cm/s TR Peak Velocity 268.0 cm/s TR Peak Gradient 28.7 mmHg TV Peak E Velocity 79.0 cm/s Right Atrial Pressure 3.0 mmHg Pulmonary Artery Systolic Pressu 31.7 mmHg PV Peak Velocity 106.0 cm/s FINDINGS Left Ventricle Left ventricle is normal in size. LV systolic function is normal with EF of 55 to 60%. No regional wall motion abnormalities are seen. Moderate concentric left ventricular hypertrophy. Grade 1 diastolic dysfunction. Right Ventricle Normal in size and function Right Atrium Normal in size Left Atrium Normal in size Mitral Valve Structurally normal mitral valve. Mild mitral regurgitation. Aortic Valve Structurally normal aortic valve. No significant stenosis or regurgitation. Tricuspid Valve Mild tricuspid regurgitation. Pulmonary artery systolic pressure is normal. Pulmonic Valve Not well visualized Pericardium Normal Aorta Normal in size IVC Not well visualized. CONCLUSIONS LV systolic function is normal with EF of 55 to 60%. Moderate concentric left ventricular hypertrophy. Grade 1 diastolic dysfunction. Mild mitral regurgitation. Mild tricuspid regurgitation. Compared to prior echocardiogram from 2022, no significant changes are seen. Orlin Spear MD (Electronically Signed) Final Date: 24 June 2024 10:21 S
== END 2024-06-23 14:02 | disposition home or self-care (01) ==
PROVIDERS: PCP Nurse Practitioner Family; Visit Provider Internal Medicine
DX: I50.30 Unspecified diastolic (congestive) heart failure (principal); I51.7 Cardiomegaly; R07.9 Chest pain, unspecified
CPT/HCPCS: 93306

== ENCOUNTER → 2024-08-13 09:45 | Outpatient (BNVA) | payer MEDICARE, SELFPAY | PROVIDERS: PCP Nurse Practitioner Family; Visit Provider Nurse Practitioner Family | DX: I11.9 Hypertensive heart disease without heart failure (principal); G47.33 Obstructive sleep apnea (adult) (pediatric); I38 Endocarditis, valve unspecified | CPT/HCPCS: 99214 ==

== ENCOUNTER 2024-09-28 09:34 | Outpatient (CLI) | payer MEDICARE, SELFPAY | END 2024-09-28 09:35 | disposition home or self-care (01) | LOC: SLEEP 09:36 | PROVIDERS: PCP Nurse Practitioner Family; Visit Provider Nurse Practitioner Family | DX: G47.33 Obstructive sleep apnea (adult) (pediatric) (principal); I10 Essential (primary) hypertension | CPT/HCPCS: G0399 ==

== ENCOUNTER → 2024-11-16 11:22 | Outpatient (BNVA) | payer MEDICARE, SELFPAY | PROVIDERS: PCP Nurse Practitioner Family; Visit Provider Nurse Practitioner Family | DX: R30.0 Dysuria (principal) | CPT/HCPCS: 81000 ==

== ENCOUNTER → 2025-02-24 15:10 | Outpatient (BNVA) | payer MEDICARE, SELFPAY | PROVIDERS: PCP Nurse Practitioner Family; Visit Provider Internal Medicine | DX: I11.9 Hypertensive heart disease without heart failure (principal); K21.9 Gastro-esophageal reflux disease without esophagitis; R01.1 Cardiac murmur, unspecified | CPT/HCPCS: 99213 ==

== ENCOUNTER → 2025-04-19 11:22 | Outpatient (BNVA) | payer MEDICARE, SELFPAY | PROVIDERS: PCP Nurse Practitioner Family; Visit Provider Nurse Practitioner Family | DX: K59.01 Slow transit constipation (principal); I10 Essential (primary) hypertension; R07.9 Chest pain, unspecified | CPT/HCPCS: 80053; 80061; 84443; 85025 ==

== ENCOUNTER → 2025-06-02 12:29 | Outpatient (BNVA) | payer MEDICARE, SELFPAY | PROVIDERS: PCP Nurse Practitioner Family; Visit Provider Nurse Practitioner Family | DX: I10 Essential (primary) hypertension (principal); R07.9 Chest pain, unspecified | CPT/HCPCS: 80053; 84484; 85025 ==

== ENCOUNTER 2025-07-23 07:08 | Outpatient (CLI) | payer MEDICARE, SELFPAY ==
--- NOTE | 2025-07-23 07:00 | US_ITS ---
WS: [id number] Complete ABDOMINAL ULTRASOUND HISTORY: R19.00 - Intra-abdominal and pelvic swelling, mass and sapna... COMPARISON: 03/01/2022, CT 06/01/2024 Liver: 12.2 cm in length. Normal size liver and echogenicity. No bile duct dilatation or mass. Portal Vein: Normal hepatopetal flow with monophasic waveform. Gallbladder: Prior cholecystectomy. CBD: 0.4 cm Pancreas: Normal size and echogenicity. Right kidney: 10.3 cm x 4.5 x 4.9 cm. Cortex:1.0 cm. Normal size kidney. Well-circumscribed hyperechoic mass is reidentified in the superior pole measuring 1.2 x 1.4 x 1.1 cm. No solid mass. Left kidney: 10.8 cm x 4.3 cm x 4.3 cm. Cortex: 1.1 cm. Normal size kidney. Lobulated cyst from the superior pole measures 6.1 x 4.0 x 4.1 cm. No obstruction. Spleen: 9.5 cm. Normal size and echogenicity. Aorta and IVC: Unremarkable abdominal aorta and IVC. Area of abdominal wall bulging demonstrates no obvious herniation. There is a small track extending near the umbilicus which appears to be filled with fat. US/US abdomen complete* [id number] Impression: 1. Prior cholecystectomy. 2. Fat-containing umbilical hernia. No incarcerated loop of bowel identified. For further evaluation consider CT of the abdomen and pelvis to evaluate the ab dominal wall. 3. Stable superior pole RIGHT renal angiomyolipoma. 4. Lobulated cyst superior pole LEFT kidney is stable.
== END 2025-07-23 07:09 | disposition home or self-care (01) ==
PROVIDERS: PCP Nurse Practitioner Family; Visit Provider Nurse Practitioner Family
DX: Z98.890 Other specified postprocedural states (principal); K42.9 Umbilical hernia without obstruction or gangrene; N28.1 Cyst of kidney, acquired; D17.71 Benign lipomatous neoplasm of kidney; Z90.49 Acquired absence of other specified parts of digestive tract
CPT/HCPCS: 76700

== ENCOUNTER 2025-08-18 13:54 | Outpatient (CLI) | payer MEDICARE, SELFPAY ==
--- NOTE | 2025-08-18 14:45 | CT_ITS ---
WS: [id number] CT ABDOMEN AND PELVIS WITH CONTRAST HISTORY: R19.00 - Intra-abdominal and pelvic swelling, mass and sapna... TECHNIQUE: Imaging performed of the abdomen and pelvis with IV contrast. Single phase imaging of the abdomen. Coronal and sagittal reformats are submitted. All CT scans at [facility] use at least one of these dose optimization techniques: automated exposure control; mA and/or kV adjustment per patient size (includes targeted exams where dose is matched to clinical indication); or iterative reconstruction. IV CONTRAST: Omnipaque 350; 100 mL IV. Oral contrast: Yes. DLP: 391.44 mGy.cm COMPARISON: 06/01/2024 Lower thorax: Lung bases are clear. Heart is normal size. Small hiatal hernia. Liver/biliary system: Normal size with no intrahepatic dilatation. Gallbladder: Status post cholecystectomy. Pancreas: Normal size pancreas and pancreatic duct. No adjacent inflammation. Spleen: Normal size spleen. No mass or infarct. Adrenal glands: Normal. Right kidney: Normal size kidney. There are a few scattered cortical hypodensities. No solid mass identified. No obstruction. Left kidney: Numerous cysts are identified. The largest is posterior in the upper pole measuring 5.3 cm. No solid mass. No obstruction. Aorta: Moderate atherosclerosis with no aneurysm. Plaque at the origin of the SMA and celiac axis. No occlusion or progression since the prior studies. Lymphadenopathy: None. Free fluid: None. GI tract: Stomach is distended with oral contrast. No small bowel obstruction. There is a loop of small bowel extending through the LEFT lateral abdominal wall. This hernia is at the site of the prior colostomy which has been reversed. There is a focal loop of small bowel extending into the hernia. At this time there is no obstruction or fluid at the hernia sac. Postsurgical changes are noted in the sigmoid. There are anastomotic sutures. No recurrent obstruction or mass. No diverticulitis. Mild constipation in the RIGHT colon. Abdominal wall: Tiny umbilical hernia. Pelvis: No free fluid or adenopathy within the pelvis. Bones: L4 anterolisthesis by 6 mm. No destructive bone lesions. CT/CT abdomen pelvis w con* [id number] IMPRESSION: 1. LEFT lateral abdominal wall hernia containing a loop of nondilated small mary carmen wel. This hernia is at the site of the prior colostomy which has been reversed. 2. Anastomotic sutures in the sigmoid colon are identified. There is no obstru ction or recurrent acute inflammatory changes. 3. No ascites or adenopathy. 4. Moderate atherosclerosis aorta. 5. Prior cholecystectomy. 6. Bilateral renal cysts.
[2025-08-18 15:10] LABS: Blood Urea Nitrogen 12 mg/dL (8-23)
[2025-08-18] MEDS: iohexol 350 mg/mL 500 mL Btl (per mL) IV (15:16)
[2025-08-18] MEDS: iohexol 350 mg/mL 500 mL Btl (per mL) PO (15:16)
== END 2025-08-18 13:55 | disposition home or self-care (01) ==
PROVIDERS: PCP Nurse Practitioner Family; Visit Provider Nurse Practitioner Family
DX: R19.00 Intra-abdominal and pelvic swelling, mass and lump, unspecified site (principal); R10.819 Abdominal tenderness, unspecified site; K57.92 Diverticulitis of intestine, part unspecified, without perforation or abscess without bleeding; K43.9 Ventral hernia without obstruction or gangrene; I70.0 Atherosclerosis of aorta; Z90.49 Acquired absence of other specified parts of digestive tract; N28.1 Cyst of kidney, acquired; K44.9 Diaphragmatic hernia without obstruction or gangrene; N28.89 Other specified disorders of kidney and ureter; I70.8 Atherosclerosis of other arteries; R93.3 Abnormal findings on diagnostic imaging of other parts of digestive tract; K59.00 Constipation, unspecified; M43.16 Spondylolisthesis, lumbar region
CPT/HCPCS: 74177; 82565; 84520